=== PATIENT | female | born 1940 | race Caucasian/White ===

== ENCOUNTER 2019-07-14 09:19 | Outpatient (CLI) | payer MEDICARE, BC, SELFPAY ==
--- NOTE | ~2019-07-14 | US_ITS ---
EXAMINATION: US abdomen limited DATE: 07/14/2019 09:53 INDICATION: Abnormal liver function tests. TECHNIQUE: Multiple grayscale and Doppler ultrasound images of the abdomen were obtained. COMPARISON: CT abdomen and pelvis 11/28/2015 FINDINGS: The visualized portions of the head and body of the pancreas are normal. The liver is lakeisha l without focal lesion. No liver surface nodularity. There is normal flow in main portal vein. The ga llbladder is normal in size. No gallstones or gallbladder wall thickening. There was no sonographic M urphy sign. The common duct is normal and measures 6 mm. IMPRESSION: 1. Normal right upper quadrant ultrasound. Reviewed, dictated and finalized at location A.
== END 2019-07-14 09:20 | disposition home or self-care (01) ==
LOC: ANHIMG 09:22
PROVIDERS: PCP Family Medicine; Visit Provider Internal Medicine Cardiovascular Disease
DX: R79.89 Other specified abnormal findings of blood chemistry (principal)
CPT/HCPCS: 76705

== ENCOUNTER 2019-10-17 15:50 | Outpatient (CLI) | payer MEDICARE, BC, SELFPAY ==
--- NOTE | ~2019-10-17 | XR_ITS ---
EXAMINATION: XR tibia fibula RT 2V DATE: 10/17/2019 16:21 INDICATION: Right lower leg pain TECHNIQUE: 1. Anteroposterior and lateral views of the right tibia and fibula were obtained. COMPARISON: None. FINDINGS: Alignment is normal. No fracture. No periosteal reaction or suspicious lytic or blastic bone lesions. Osteoarthritis at the right knee with mild to moderate nonuniform joint space narrowing on nonweight bearing imaging and marginal ossified swelling the medial tibial plateau. Joint space at the right an kle and visualized portions of the mid and hindfoot appear relatively preserved. Soft tissues are unr emarkable. No right ankle joint effusion. IMPRESSION: 1. Mild to moderate osteoarthritis at the right knee which could be underestimated on nonweightbearin g imaging. Reviewed, dictated and finalized at location A. IMPRESSION: 1. Mild to moderate osteoarthritis at the right knee which could be underestima deo on nonweightbearing imaging.
== END 2019-10-17 15:51 | disposition home or self-care (01) ==
PROVIDERS: PCP Family Medicine; Visit Provider Family Medicine
DX: M17.11 Unilateral primary osteoarthritis, right knee (principal)
CPT/HCPCS: 73590

== ENCOUNTER 2019-11-01 01:10 | Outpatient (CLI) | payer MEDICARE, BC, SELFPAY ==
[2019-11-01 20:48] LABS: SARS-CoV-2 RNA PCR Negative
== END 2019-11-01 01:11 | disposition home or self-care (01) ==
LOC: ANHCOVIDDT 01:11
PROVIDERS: PCP Family Medicine; Visit Provider Internal Medicine Gastroenterology
DX: Z01.812 Encounter for preprocedural laboratory examination (principal); Z11.59 Encounter for screening for other viral diseases
CPT/HCPCS: 87635; C9803; U0003

== ENCOUNTER 2019-11-03 01:40 | Day surgery (SDC) | payer MEDICARE, BC, SELFPAY ==
[2019-10-30 12:46] VITALS: BMI 25.0
--- NOTE | ~2019-11-03 | XR_ITS ---
EXAMINATION: XR_ENEMABAC_CR DATE: 11/03/2019 14:51 INDICATION: Incomplete colonoscopy TECHNIQUE: A jewelry manager radiograph was obtained. A catheter was inserted into the patient's rectum. Contra st was infused by gravity. Gas was infused by hand pump. Fluoroscopic spot images and conventional ra diographs were obtained. Fluoroscopy exposure time was 4.0 minutes. The DAP for this procedure was 47 .78 Gycm2. 27 total images were obtained. COMPARISON: None. FINDINGS: A moderate amount of colonic gas is seen on the jewelry manager image. No dilated loops of bowel are evident. Early fluoroscopic images demonstrate a questionable stricture of the descending colon howev er, this does not persist on subsequent images. There is extensive sigmoid diverticulosis. A divertic ulum is also noted at the splenic flexure of the colon. The colon is normal in caliber. IMPRESSION: 1. Extensive diverticulosis of the sigmoid colon. No colonic mass or stricture identified. Reviewed, dictated and finalized at location A.
[2019-11-03 07:50] VITALS: BP 163/64; PULSE 54; RESP 18; TEMP 36.3; O2SAT 100; BMI 24.8
[2019-11-03] MEDS: LACTATED RINGERS 1,000 ML 150 ML IV CONT (08:20)
--- NOTE | 2019-11-03 08:29 | PM.HPGS ---
History of Present Illness History of Present Illness Consent: Risks, benefits, and alternatives have been discussed and questions answered. Patient agrees to proceed with procedure. Chief complaint: Iron Deficient Anemia Narrative: Kate Velasco is a 79 year old W female referred for gastroscopy and colonoscopy for evaluation of iron deficiency anemia. Patient's only symptoms include tiredness and fatigue. Routine blood work she was noted to have a hemoglobin 9.5 hematocrit 31 a decreased iron studies patient has no overt evidence of GI blood loss. She thinks in the spring she had some darker stools than usual. She denies any nonsteroidal inflammatory drugs except for ibuprofen a couple times a week. No upper GI tract symptoms. Patient has lost 17 lb but states she has been on weight watchers the past year. Patient had a colonoscopy performed by myself 5 years ago secondary to family history of colon cancer in her father I could not reach the cecum secondary redundant hepatic flexure. She did have a barium enema which revealed extensive diverticular disease and a redundant transverse colon hepatic flexure. I did explain to her I may not be able to reach the cecum again. If so repeat an x-ray. [facility] Past Medical History Medical History Anemia Gastritis GERD (gastroesophageal reflux disease) Iron deficiency anemia, unspecified Pain in right lower leg Family History Family History Father Patient's father is , Onset Age: 81 Family history of cardiovascular disease Mother Family history of cardiovascular disease, Onset Age: 73 Sibling Family history of cardiovascular disease Grandparent Family history of cardiovascular disease, Onset Age: 70 Family history of malignant neoplasm, Onset Age: 63 Other Diabetes mellitus Family history of arthritis Family history of gout Hypertension Social History Social History Smoking status: Never smoker Second hand tobacco smoke exposure: Yes (spouse) Alcohol intake: current Drinks per week: 7 Alcohol use details: glass of wine in the evening Substance use type: does not use Living arrangements: alone Gender identity (if verbalized by the patient): Female Spiritual care concerns: No Meds Home Medications and Allergies Home Medications Medication Instructions Recorded Confirmed Type amlodipine 2.5 mg tablet 2.5 mg PO DAILY 05/22/19 10/30/19 History aspirin 81 mg tablet,delayed 81 mg PO DAILY 05/22/19 10/30/19 History release azelastine 137 mcg (0.1 %) nasal 137 mcg NASAL Q12H PRN 05/22/19 10/30/19 History spray aerosol donepezil 5 mg tablet 5 mg PO . q.h.s. tablet 05/22/19 10/30/19 History fluticasone propionate 50 1 spray NASAL BID PRN 05/22/19 10/30/19 History mcg/actuation nasal spray,suspension furosemide 20 mg tablet 20 mg PO QAM 05/22/19 10/30/19 History lisinopril 20 mg tablet 20 mg PO DAILY 05/22/19 10/30/19 History rosuvastatin 10 mg tablet 10 mg PO DAILY 05/22/19 10/30/19 History ferrous sulfate 325 mg (65 mg 325 mg PO DAILY 10/17/19 10/30/19 History iron) tablet omeprazole 40 mg capsule,delayed 40 mg PO DAILY #30 cap 10/17/19 10/30/19 Rx release nebivolol 5 mg tablet 5 mg PO DAILY 10/25/19 10/30/19 History biotin 1,000 mcg PO DAILY 10/30/19 10/30/19 History glucos sul 1GQr-bia-isczq-C-Mn cap PO 10/30/19 History [Glucosamine Chondroitin] Allergies Allergy/AdvReac Type Severity Reaction Status Date / Time albuterol AdvReac Unknown Nervousness Verified 11/03/19 07:49 codeine AdvReac Unknown NAUSEA/VOMI Verified 11/03/19 07:49 TING epinephrine AdvReac Unknown Nervousness Verified 11/03/19 07:49 hydrocodone AdvReac Unknown GI UPSET Verified 11/03/19 07:49 Vital Signs Vital Signs - 24 hr
--- NOTE | 2019-11-03 08:54 | WPDANESEPPF ---
Anes - Initial Pre Proc Eval Procedure: Operation Date: 11/03/19 09:00 Proposed Procedures p Esophagogastroduodenoscopy&Screen Colon - Surya Middleton MD Date/Time: 11/03/19 08:54 Surgeon: Surya Middleton MD Pre Op Diagnosis: Iron Deficient Anemia Patient Data Age: 79 Gender: F Height: 5 ft 3 in Weight: 63.7 kg Last Vital Signs Temp 97.4 F L 11/03/19 07:50 Pulse 54 L 11/03/19 07:50 Resp 18 11/03/19 07:50 BP 163/64 H 11/03/19 07:50 Pulse Ox 100 11/03/19 07:50 Allergies Allergy/AdvReac Type Severity Reaction Status Date / Time albuterol AdvReac Unknown Nervousness Verified 11/03/19 07:49 codeine AdvReac Unknown NAUSEA/VOMI Verified 11/03/19 07:49 TING epinephrine AdvReac Unknown Nervousness Verified 11/03/19 07:49 hydrocodone AdvReac Unknown GI UPSET Verified 11/03/19 07:49 Home Medications Medication Instructions Recorded Confirmed Type amlodipine 2.5 mg tablet 2.5 mg PO DAILY 05/22/19 10/30/19 History aspirin 81 mg tablet,delayed 81 mg PO DAILY 05/22/19 10/30/19 History release azelastine 137 mcg (0.1 %) nasal 137 mcg NASAL Q12H PRN 05/22/19 10/30/19 History spray aerosol donepezil 5 mg tablet 5 mg PO . q.h.s. tablet 05/22/19 10/30/19 History fluticasone propionate 50 1 spray NASAL BID PRN 05/22/19 10/30/19 History mcg/actuation nasal spray,suspension furosemide 20 mg tablet 20 mg PO QAM 05/22/19 10/30/19 History lisinopril 20 mg tablet 20 mg PO DAILY 05/22/19 10/30/19 History rosuvastatin 10 mg tablet 10 mg PO DAILY 05/22/19 10/30/19 History ferrous sulfate 325 mg (65 mg 325 mg PO DAILY 10/17/19 10/30/19 History iron) tablet omeprazole 40 mg capsule,delayed 40 mg PO DAILY #30 cap 10/17/19 10/30/19 Rx release nebivolol 5 mg tablet 5 mg PO DAILY 10/25/19 10/30/19 History biotin 1,000 mcg PO DAILY 10/30/19 10/30/19 History glucos sul 3RSp-hwo-dbyvy-C-Mn cap PO 10/30/19 History [Glucosamine Chondroitin] Patient hx anesthesia problems: none Family hx anesthesia problems: none PMFSH Past Medical History Medical History Anemia Gastritis GERD (gastroesophageal reflux disease) Iron deficiency anemia, unspecified Pain in right lower leg Family History Family History Father Patient's father is , Onset Age: 81 Family history of cardiovascular disease Mother Family history of cardiovascular disease, Onset Age: 73 Sibling Family history of cardiovascular disease Grandparent Family history of cardiovascular disease, Onset Age: 70 Family history of malignant neoplasm, Onset Age: 63 Other Diabetes mellitus Family history of arthritis Family history of gout Hypertension Social History Social History Smoking status: Never smoker Second hand tobacco smoke exposure: Yes (spouse) Alcohol intake: current Drinks per week: 7 Alcohol use details: glass of wine in the evening Substance use type: does not use Living arrangements: alone Gender identity (if verbalized by the patient): Female Spiritual care concerns: No Anes - Eval Final PreProcedure Day of Procedure 11/03/19 08:54 Patient weight: normal Heart: regular rate and rhythm Lungs: clear to auscultation Airway: Mallampati scale class II Neurological: alert and oriented Last oral intake: >/= 8 hours ASA classification: II Emergent: no Anesthetic plan: proceed Anesthesia type and monitoring: general GIVS and standard monitoring Informed Consent: The patient's anesthetic plan and its attendant risks and benefits were discussed with the patient/family/POA. Questions were solicited and answers provided to the satisfaction of the patient/family/POA.
[2019-11-03 09:46] VITALS: BP 182/72; PULSE 54; RESP 18; O2SAT 100
[2019-11-03 09:56] VITALS: BP 185/75; PULSE 52; RESP 19; O2SAT 100
[2019-11-03 10:06] VITALS: BP 191/81; PULSE 55; RESP 16; O2SAT 100
== END 2019-11-03 10:33 | disposition home or self-care (01) ==
PROVIDERS: PCP Family Medicine; Visit Provider Internal Medicine Gastroenterology
PROC: 0DJ08ZZ Inspection of Upper Intestinal Tract, Via Natural or Artificial Opening Endoscopic (ICD-10-PCS; CPT 43235; principal; 2019-11-03 09:00)
DX: D50.9 Iron deficiency anemia, unspecified (principal); K25.9 Gastric ulcer, unspecified as acute or chronic, without hemorrhage or perforation; K29.50 Unspecified chronic gastritis without bleeding; K21.9 Gastro-esophageal reflux disease without esophagitis; I10 Essential (primary) hypertension; E78.5 Hyperlipidemia, unspecified; Z87.11 Personal history of peptic ulcer disease; Z80.0 Family history of malignant neoplasm of digestive organs; Z79.82 Long term (current) use of aspirin; Z79.899 Other long term (current) drug therapy; Z79.51 Long term (current) use of inhaled steroids
CPT/HCPCS: 43239; 74280; 87081; 88305; J2001; J2704; J7120

== ENCOUNTER 2020-07-17 12:12 | Outpatient (CLI) | payer MEDICARE, BC, SELFPAY ==
[2020-07-17 13:20] LABS: Anion Gap 6 mmol/L (8-16); Blood Urea Nitrogen 19 mg/dL (7-17); Calcium 9.5 mg/dL (8.4-10.2); Carbon Dioxide 30 mmol/L (22-30); Chloride 99 mmol/L (98-107); Estimated Glomerular Filt Rate 60; Glucose 92 mg/dL (65-105); Potassium 4.6 mmol/L (3.4-5.0); Sodium 135 mmol/L (137-145)
== END 2020-07-17 12:13 | disposition home or self-care (01) ==
PROVIDERS: PCP Family Medicine; Visit Provider Internal Medicine Cardiovascular Disease
DX: I10 Essential (primary) hypertension (principal)
CPT/HCPCS: 36415; 80048

== ENCOUNTER 2020-07-26 08:55 | Outpatient (CLI) | payer MEDICARE, BC, SELFPAY ==
[2020-07-26 09:40] LABS: Anion Gap 7 mmol/L (8-16); Blood Urea Nitrogen 26 mg/dL (7-17); Calcium 9.5 mg/dL (8.4-10.2); Carbon Dioxide 30 mmol/L (22-30); Chloride 101 mmol/L (98-107); Estimated Glomerular Filt Rate 60; Glucose 93 mg/dL (65-105); Potassium 4.8 mmol/L (3.4-5.0); Sodium 138 mmol/L (137-145)
== END 2020-07-26 08:56 | disposition home or self-care (01) ==
PROVIDERS: PCP Family Medicine; Visit Provider Internal Medicine Cardiovascular Disease
DX: I10 Essential (primary) hypertension (principal)
CPT/HCPCS: 36415; 80048

== ENCOUNTER 2020-08-13 15:43 | Outpatient (CLI) | payer MEDICARE, BC, SELFPAY ==
--- NOTE | ~2020-08-13 | XR_ITS ---
XR chest 2V DATE: 08/13/2020 16:15 INDICATION: Left-sided chest pain, mid rib or breast area following a fall 5 days ago TECHNIQUE: PA and lateral views COMPARISON: 06/30/2013 2 view chest FINDINGS: Normal heart size. No hilar or mediastinal enlargement. Thoracic aortic calcification. Mild bilateral apical capping. Bilateral hyperinflation suggesting COPD. No pulmonary infiltrate or consolidation, pleural effusion or pulmonary vascular congestion or pneumothorax. Diffuse osteopenia. Mild thoracic dextroscoliosis. IMPRESSION: Bilateral hyperinflation consistent with COPD No active cardiopulmonary disease Thoracic aortic calcification Reviewed, dictated and finalized at location A.
== END 2020-08-13 15:44 | disposition home or self-care (01) ==
PROVIDERS: PCP Family Medicine; Visit Provider Family Medicine
DX: R07.89 Other chest pain (principal); I70.0 Atherosclerosis of aorta
CPT/HCPCS: 71046

== ENCOUNTER 2021-06-24 15:41 | Emergency (ER) | payer MEDICARE, BC, SELFPAY ==
[2021-06-24 16:03] VITALS: BP 155/60; PULSE 56; RESP 18; TEMP 36.4; O2SAT 100
--- NOTE | 2021-06-24 16:29 | ED.SKABFB ---
HPI - Skin/Abscess/Foreign Bdy General Chief complaint: Skin/Abscess/Foreign Body Stated complaint: rash on rt side Time Seen by Provider: 06/24/21 16:29 Source: patient, RN notes reviewed and old records reviewed Mode of arrival: ambulatory Limitations: no limitations History of Present Illness HPI narrative: 80-year-old female who presents to [facility] with complaints of macular rash along right side of abdomen noted today which is itchy and states she has noted some burning sensation. Patient relays history of chicken pox and past shingles rash. Rash noted to be raised and red with no pustular formation but is grouped in linear fashion. Patient denies any known exposure to poisonous plant or any new skin products, laundry detergents, new mediations or food. MD complaint: rash Related Data Home Medications Medication Instructions Recorded Confirmed amlodipine [Norvasc] 5 mg PO DAILY 06/24/21 06/24/21 azilsartan medoxomil [Edarbi] 40 mg PO DAILY 06/24/21 06/24/21 donepezil 10 mg PO DAILY 06/24/21 06/24/21 furosemide 20 mg PO DAILY 06/24/21 06/24/21 hydrochlorothiazide 25 mg PO DAILY 06/24/21 06/24/21 nebivolol 5 mg PO DAILY 06/24/21 06/24/21 omeprazole 40 mg PO DAILY 06/24/21 06/24/21 tobramycin 1 drp DIRECTED 06/24/21 06/24/21 vitamins A,C,Y-aehs-gdmktx 1 cap PO DAILY 06/24/21 06/24/21 [PreserVision AREDS] Allergies Allergy/AdvReac Type Severity Reaction Status Date / Time albuterol AdvReac Unknown Nervousness Verified 06/24/21 16:31 codeine AdvReac Unknown NAUSEA/VOMI Verified 06/24/21 16:30 TING epinephrine AdvReac Unknown Nervousness Verified 06/24/21 16:30 hydrocodone AdvReac Unknown GI UPSET Verified 06/24/21 16:31 Review of Systems Review of Systems: CONSTITUTIONAL: Denies fever, chills, or sweats. EYES: Denies visual changes, redness, or discharge. ENT: Denies rhinorrhea, congestion, sore throat, or otalgia. CARDIOVASCULAR: Denies chest pain, palpitations, or edema. RESPIRATORY: Denies cough or dyspnea. GASTROINTESTINAL: Denies abdominal pain, nausea, vomiting, or diarrhea. GENITOURINARY: Denies dysuria or hematuria. SKIN:Positive for raised rash with itching and some burning along upper lateral right abdomen MUSCULOSKELETAL: Denies back pain, joint pain, or myalgia. NEUROLOGIC: Denies headache, numbness, or weakness. PSYCHIATRIC: Denies anxiety or depression. 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 EGD 06/19/2020 BMI 25.0-25.9,adult Contusion of left chest wall Gastritis GERD (gastroesophageal reflux disease) High cholesterol Hypertension Iron deficiency anemia, unspecified Left knee DJD Left shoulder pain Pain in right lower leg Peptic ulcer disease Right knee DJD Stomach ulcer Stye Surgical History Surgical History (Updated 06/24/21 @ 23:57 by Lady Hugo NP) S/P right knee arthroscopy Family History Family History Father Patient's father is , Onset Age: 81 Family history of cardiovascular disease Mother Family history of cardiovascular disease, Onset Age: 73 Sibling Family history of cardiovascular disease Grandparent Family history of cardiovascular disease, Onset Age: 70 Family history of malignant neoplasm, Onset Age: 63 Other Diabetes mellitus Family history of arthritis Family history of gout Hypertension Social History Social History Second hand tobacco smoke exposure: Yes (spouse) Alcohol intake: current Drinks per week: 7 Alcohol use details: glass of wine in the evening Substance use type: does not use Gender identity (if verbalized by the pa
== END 2021-06-24 16:47 | disposition home or self-care (01) ==
PROVIDERS: Emergency Provider Registered Nurse; PCP Family Medicine
DX: B02.9 Zoster without complications (principal); M19.90 Unspecified osteoarthritis, unspecified site; K21.9 Gastro-esophageal reflux disease without esophagitis; M17.0 Bilateral primary osteoarthritis of knee; D50.9 Iron deficiency anemia, unspecified
CPT/HCPCS: 99213; G0463

== ENCOUNTER → 2022-10-01 09:45 | Outpatient (CLI) | payer MEDICARE, BC, SELFPAY ==
--- NOTE | ~2022-10-01 | XR_ITS ---
Right Shoulder Technique: AP and axillary views were obtained. Clinical History: Pain Findings: No fracture or dislocation is seen. Osseous alignment is anatomic. The glenohumeral and acr omioclavicular joint spaces are preserved. Soft tissues are unremarkable. Impression: Unremarkable right shoulder radiographs. Reviewed, dictated and finalized at [facility]. Impression: Unremarkable right shoulder radiographs.
== END ==
PROVIDERS: PCP Family Medicine; Visit Provider Family Medicine
DX: M25.511 Pain in right shoulder (principal)
CPT/HCPCS: 73030

== ENCOUNTER 2022-12-13 10:27 | Inpatient (IN) | payer MEDICARE, BC, SELFPAY ==
[2022-12-13] VITALS (17 sets, daily range): BP systolic 142–164; BP diastolic 63–74; PULSE 59–84; RESP 12–20; TEMP 36.1–37.2; O2SAT 98–100; BMI 25.2
--- NOTE | ~2022-12-13 | XR_ITS ---
EXAMINATION: XR chest 2V DATE: 12/13/2022 11:44 INDICATION: Fever. TECHNIQUE: Frontal and lateral views of the chest were obtained on 3 radiographs. COMPARISON: Chest 2 views 08/13/2020 FINDINGS: There are airspace opacities in left upper lobe, consistent with pneumonia. No pleural effu carol or pneumothorax. The heart size is normal. IMPRESSION: 1. Left upper lobe pneumonia. Reviewed, dictated and finalized at location A.
--- NOTE | 2022-12-13 10:42 | ECG_ITS ---
Measurements Intervals [place] Rate: 59 P: 30 PA: 159 QRS: -11 QRSD: 81 T: 22 QT: 429 QTc: 427 Interpretive Statements SINUS BRADYCARDIA NO PREVIOUS ECG AVAILABLE FOR COMPARISON Electronically Signed On 12-13-2022 13:03:10 CDT by Marbin Quinonez M.D.
--- NOTE | 2022-12-13 10:51 | ED.FEVER ---
HPI - Fever General Chief Complaint: Fever Stated Complaint: fever/aches Time Seen by Provider: 12/13/22 10:42 Source: patient Mode of arrival: ambulatory Limitations: no limitations History of Present Illness HPI Narrative: This is a 82 year old female that presents to the ER for fevers. Ongoing the last week. Associated with myalgias and chills. She was seen at Urgent Care and started on Amoxicillin for possible sinusitis. Reports she has been taking this for 3 days. Also added on Doxycycline last night. She continues to feel fatigued. Denies cough, congestion, sore throat, otalgia, rashes, abdominal pain, vomiting, diarrhea, or dysuria. Related Data Home Medications Medication Instructions Recorded Confirmed azilsartan medoxomil 40 mg tablet 40 mg PO DAILY 06/24/21 12/13/22 (Edarbi) inclisiran 284 mg/1.5 mL 284 mg subcut [id number] 07/14/22 12/13/22 subcutaneous syringe (Leqvio) magnesium oxide 250 mg PO DAILY PRN Leg cramps 07/14/22 12/13/22 nebivolol 5 mg tablet 2.5 mg PO DAILY 07/14/22 12/13/22 amlodipine 5 mg tablet (Norvasc) 5 mg PO BID 10/01/22 12/13/22 fluticasone propionate 50 1 spray intranasal BID PRN Allergy 12/13/22 12/13/22 mcg/actuation nasal Symptoms spray,suspension (Flonase Allergy Relief) omeprazole 20 mg capsule,delayed 20 mg PO DAILY 12/13/22 12/13/22 release Allergies Allergy/AdvReac Type Severity Reaction Status Date / Time albuterol AdvReac Unknown Nervousness Verified 11/19/22 14:10 codeine AdvReac Unknown NAUSEA/VOMI Verified 11/19/22 14:10 TING epinephrine AdvReac Unknown Nervousness Verified 11/19/22 14:10 hydrocodone AdvReac Unknown GI UPSET Verified 11/19/22 14:10 Review of Systems Review of Systems: CONSTITUTIONAL: Reports fever, chills ENT: Denies rhinorrhea, congestion, sore throat, or otalgia. CARDIOVASCULAR: Denies chest pain RESPIRATORY: Denies cough or dyspnea. GASTROINTESTINAL: Denies abdominal pain, nausea, vomiting, or diarrhea. GENITOURINARY: Denies dysuria or hematuria. SKIN: Denies rash All systems reviewed & are unremarkable except as noted in HPI and below PMFSH Past Medical History Medical History (Updated 12/13/22 @ 15:14 by Janice James PA-C) Abnormal fasting glucose Glucose 95 with hemoglobin A1c 5.5 on 12/05/2021. Fasting glucose 101 on 05/05/2022. Fasting glucose 97 on 08/24/2022. Fasting glucose 92 on 09/03/2022. Anemia Hemoglobin 11.4 on 08/24/2022. 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 X-ray of the right shoulder on 10/01/2022 was unremarkable. Chronic reflux esophagitis Capsule endoscopy 05/21/2020 Dementia, unspecified, without behavioral disturbance Gastritis Gastroesophageal reflux disease High cholesterol Hypertension Iron deficiency anemia, unspecified Hemoglobin 11.0, iron 106 with 31% saturation and ferritin 78 on 12/05/2021. Iron 90, 27.7% saturation, ferritin 124, hemoglobin 11.2 on 05/05/2022. Iron 104 with 31% saturation and ferritin 104 with hemoglobin 11.4 on 08/24/2022. Left knee DJD Low serum sodium Sodium 127 with chloride 91 on 08/24/2022. sodium 133 with potassium 4.6 on 09/03/2022. Peptic ulcer disease Poor memory Right knee DJD Serum potassium elevated Potassium slightly elevated at 5.4 on 08/24/2022. Repeated at 09/03/2022 with level normal at 4.6. Stomach ulcer Surgical History Surgical History (Updated 12/13/22 @ 14:57 by Corina Dejesus PA-C) History of arthroscopy of right knee S/P right knee arthroscopy Family History Family History Father Patient's father is , Onset Age: 81 Family history of cardiovascular disease Mother Family history of cardiovascular disease, Onset Age: 73 Sibling Family history of cardiovascular disease Grandparent
[2022-12-13 11:12] LABS: Basophils Percent Auto 0.5 % (0.2-1.2); Eosinophils Absolute Auto 0.1 K/mm3 (0-0.3); Eosinophils Percent Auto 1.3 % (0-4.4); Hematocrit 31.4 % (37.0-47.0); Hemoglobin 10.8 g/dL (12.0-15.0); Immature Granulocyte Absolute 0.03 K/mm3 (0.00-0.031); Immature Granulocyte Percent A 0.4 % (0-0.5); Lymphocytes Absolute Auto 0.55 K/mm3 (0.9-3.2); Lymphocytes Percent Auto 6.5 % (18.3-44.2); Mean Corpuscular HGB Conc 34.4 g/dl (32-36); Mean Corpuscular Hemoglobin 31.8 pg (26-34); Mean Corpuscular Volume 92.4 fl (80-100); Mean Platelet Volume 9.5 fl (7.4-10.4); Monocytes Absolute Auto 1.5 K/mm3 (0.1-0.6); Monocytes Percent Auto 18.3 % (2.6-8.5); Neutrophils Absolute Auto 6.1 K/mm3 (1.3-6.7); Platelet Count Result 360 k/mm3 (150-375); Red Cell Distribution Width 11.9 % (11.5-14.5); White Blood Count 8.4 K/mm3 (4.5-10.0)
[2022-12-13 11:22] LABS: Lactic Acid Reflex 1.9 mmol/L (0.7-2.0)
[2022-12-13 11:26] LABS: Prothrombin Time 13.9 Seconds (11.1-14.7)
[2022-12-13 11:27] LABS: Partial Thromboplastin Time 35.9 SECONDS (22.3-36.8)
[2022-12-13 11:39] LABS: Alanine Aminotransferase 25 U/L (6-35); Albumin Level 3.8 g/dL (3.5-5.1); Alkaline Phosphatase 241 U/L (38-126); Anion Gap 9 mmol/L (8-16); Aspartate Amino Transferase 30 U/L (14-36); Bilirubin,Total 0.5 mg/dL (0.2-1.3); Blood Urea Nitrogen 12 mg/dL (7-17); CRP 20.7 mg/dL (<1.0); Calcium 8.6 mg/dL (8.4-10.2); Carbon Dioxide 26 mmol/L (22-30); Chloride 86 mmol/L (98-107); Estimated CRCL calculation 31 ml/min; Estimated Glomerular Filt Rate 53; Glucose 121 mg/dL (65-110); Lipase 54 U/L (23-300); Potassium 3.7 mmol/L (3.4-5.0); Sodium 121 mmol/L (137-145)
[2022-12-13 11:48] LABS: Monoscreen Negative (Negative); Negative Monotest Control Negative (Negative); Positive Monotest Control Positive (Positive)
[2022-12-13] MEDS: SODIUM CHLORIDE 0.9% IV 1,000 ML 999 ML IV CONT (11:49)
[2022-12-13 12:11] LABS: Influenza A QL RT-PCR Negative (Negative); Influenza B QL RT-PCR Negative (Negative); RSV RNA, RT-PCR Negative (Negative); SARS-CoV-2 RNA PCR Negative (Negative)
[2022-12-13] MEDS: AZITHROMYCIN 500 MG/NS 250 ML 500 MG/250 ML BAG 250 MG IVPB (12:57)
[2022-12-13 13:22] LABS: Appearance Urine Cloudy (Clear); Bacteria Urine None Seen /hpf; Bilirubin Urine Negative (Negative); Blood Urine Negative (Negative); Color Urine Yellow (Yellow); Glucose Urine UA Negative (Negative); Ketones Urine Negative (Negative); Leukocyte Esterase Ur Negative LEU/UL (Negative); Nitrate Urine Negative (Negative); Protein Urine Trace mg/dL (Negative); RBC Urine 0-2 /hpf (0-2); Specific Grav Ur 1.008 (1.001-1.035); Squamous Epithelial Cell Urine None seen /hpf (Few); Urobilinogen Urine 0.2 mg/dL (<2.0); WBC Urine 0-5 /hpf
[2022-12-13 13:23] LABS: Add Urine Microscopic? YES
[2022-12-13] MEDS: ACETAMINOPHEN 500 MG TABLET 1000 MG PO (14:51)
--- NOTE | 2022-12-13 14:51 | PM.IMHP ---
H&P: HPI History of Present Illness Date/Time: 12/13/22 14:50 Chief Complaint: Fatigue and fever. Narrative: This is a very pleasant n 82-year-old female with hypertension, dyslipidemia, chronic hyponatremia, and anemia who presented to the emergency department via private vehicle from home with complaints of fatigue and fever. The patient provides the following history. She has not been feeling well for about 1 week with symptoms to include myalgias, chills, fatigue, and fever. Her appetite has not been great and she endorses decrease in oral intake for most of the week. She was seen at a local urgent care and was prescribed amoxicillin for possible sinusitis (she has frequent allergy symptoms and sinus issues) after testing negative for influenza and COVID. Her symptoms did not improve after 3 days on the antibiotic and she spoke with the nurse practitioner whom she had seen at urgent care earlier in the week. She was called and doxycycline yesterday but unfortunately she continues to feel unwell and had a temperature up to 103? F last evening and she decided to come in today for evaluation. She denies chest pain, sore throat, cough, vomiting, and diarrhea. She was afebrile on arrival with stable vital signs. Preliminary workup in the ED was significant for a WBC count of 8.4, hemoglobin 10.8, sodium 121, chloride 86, CRP 20.7, and a chest x-ray showing a left upper lobe pneumonia. She was given 1 L normal saline in addition to 500 mg azithromycin and 1 gram ceftriaxone and she is being admitted in this setting for further care. Review of Systems Review of Systems: Twelve systems were reviewed. She has chronic arthritic pain in her right shoulder and knees and is scheduled to have injections on Wednesday with Dr. Chappell however it is my understanding that the gel injections did not come in. She is doing okay with regards to her knees however her shoulders giving her quite a bit of grief. Except as documented, all other systems were reviewed and are negative. [facility] Past Medical History Medical History Abnormal fasting glucose Glucose 95 with hemoglobin A1c 5.5 on 12/05/2021. Fasting glucose 101 on 05/05/2022. Fasting glucose 97 on 08/24/2022. Fasting glucose 92 on 09/03/2022. Anemia Hemoglobin 11.4 on 08/24/2022. 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 X-ray of the right shoulder on 10/01/2022 was unremarkable. Chronic reflux esophagitis Capsule endoscopy 05/21/2020 Dementia, unspecified, without behavioral disturbance Gastritis Gastroesophageal reflux disease High cholesterol Hypertension Iron deficiency anemia, unspecified Hemoglobin 11.0, iron 106 with 31% saturation and ferritin 78 on 12/05/2021. Iron 90, 27.7% saturation, ferritin 124, hemoglobin 11.2 on 05/05/2022. Iron 104 with 31% saturation and ferritin 104 with hemoglobin 11.4 on 08/24/2022. Left knee DJD Low serum sodium Sodium 127 with chloride 91 on 08/24/2022. sodium 133 with potassium 4.6 on 09/03/2022. Peptic ulcer disease Poor memory Right knee DJD Serum potassium elevated Potassium slightly elevated at 5.4 on 08/24/2022. Repeated at 09/03/2022 with level normal at 4.6. Stomach ulcer Surgical History Surgical History History of arthroscopy of right knee Family History Family History Father Patient's father is , Onset Age: 81 Family history of cardiovascular disease Mother Family history of cardiovascular disease, Onset Age: 73 Sibling Family history of cardiovascular disease Grandparent Family history of cardiovascular disease, Onset Age: 70 Family history of malignant neoplasm, Onset Age: 6
--- NOTE | 2022-12-13 15:18 | PC.NURSE ---
This patient, Kate Velasco, was admitted to Medical Room 245-. Patient/family oriented to hospital policies and general routines including ID bracelet, bed and alarms, visiting hours, pain management, procedures, bathroom and other care routines, personal items, smoking policy, room service/diet, and visiting hours. Information on how to activate the Rapid Response Team has been discussed. Patient/Family are encouraged to report perceived risks to care and to ask questions if they do not understand what they are told or what they should do.
[2022-12-13 18:46] LABS: Anion Gap 13 mmol/L (8-16); Blood Urea Nitrogen 10 mg/dL (7-17); Calcium 8.3 mg/dL (8.4-10.2); Carbon Dioxide 18 mmol/L (22-30); Chloride 95 mmol/L (98-107); Estimated CRCL calculation 43 ml/min; Estimated Glomerular Filt Rate > 60; Glucose 91 mg/dL (65-110); Sodium 126 mmol/L (137-145)
[2022-12-13 19:13] LABS: Thyroid Stimulating Hormone Reflex 0.845 uIU/mL (0.465-4.68)
[2022-12-13] MEDS: ACETAMINOPHEN 325 MG TABLET 650 MG PO (21:11)
[2022-12-13 22:06] LABS: Creatinine Urine 40.8 mg/dL; Urea Random Urine 198 MG/DL
[2022-12-13 22:16] LABS: Sodium Urine Random 36 meq/L
[2022-12-13] MEDS: amLODIPine BESYLATE 5 MG TABLET PO (22:46)
[2022-12-14] VITALS (10 sets, daily range): BP systolic 113–121; BP diastolic 59–79; PULSE 59–88; RESP 14–18; TEMP 36.6–37.8; O2SAT 97–100
[2022-12-14] MEDS: ACETAMINOPHEN 325 MG TABLET 650 MG PO ×3 (04:03→20:34)
--- NOTE | 2022-12-14 04:42 | PC.NURSE ---
Pt was under the impression that the serial sodium lab draws were not continued. Pt was refusing lab draws until morning.
[2022-12-14 05:28] LABS: Hematocrit 28.7 % (37.0-47.0); Hemoglobin 9.9 g/dL (12.0-15.0); Mean Corpuscular HGB Conc 34.5 g/dl (32-36); Mean Corpuscular Hemoglobin 31.8 pg (26-34); Mean Corpuscular Volume 92.3 fl (80-100); Mean Platelet Volume 9.8 fl (7.4-10.4); Platelet Count Result 383 k/mm3 (150-375); Red Blood Count 3.11 M/mm3 (4.2-5.4); Red Cell Distribution Width 12.2 % (11.5-14.5); White Blood Count 6.6 K/mm3 (4.5-10.0)
[2022-12-14 05:41] LABS: Anion Gap 6 mmol/L (8-16); Blood Urea Nitrogen 8 mg/dL (7-17); Calcium 8.3 mg/dL (8.4-10.2); Carbon Dioxide 26 mmol/L (22-30); Chloride 93 mmol/L (98-107); Estimated CRCL calculation 43 ml/min; Estimated Glomerular Filt Rate > 60; Glucose 100 mg/dL (65-110); Magnesium 2.2 mg/dL (1.6-2.3); Potassium 3.6 mmol/L (3.4-5.0); Sodium 125 mmol/L (137-145)
[2022-12-14] MEDS: DONEPEZIL HCL 10 MG TABLET PO (08:23)
[2022-12-14] MEDS: NEBIVOLOL HCL 2.5 MG TABLET PO (08:23)
[2022-12-14] MEDS: amLODIPine BESYLATE 5 MG TABLET PO ×2 (08:23→20:34)
[2022-12-14] MEDS: PANTOPRAZOLE 40 MG TABLET PO (08:23)
[2022-12-14 09:43] LABS: Sodium 127 mmol/L (137-145)
--- NOTE | 2022-12-14 12:11 | PM.IMPN ---
Progress Note: A&P Assessment and Plan (1) Left upper lobe pneumonia: Code(s): J18.9 - Pneumonia, unspecified organism Status: Acute Assessment and Plan: Chest x-ray revealing left upper lobe pneumonia. Patient started on Rocephin and ceftriaxone. Patient does not have a cough but sputum cultures were. Blood cultures pending. Legionella, pneumococcal antigens and mycoplasma IgM ordered. CRP 20.7 (2) Hyponatremia: Code(s): E87.1 - Hypo-osmolality and hyponatremia Status: Acute Assessment and Plan: She has chronic hyponatremia but typically runs in the low 130s. Sodium was 121 on arrival today and improved to 126 after a 1 L normal saline bolus. Suspect that she was a bit dehydrated due to poor oral intake recently and the hyponatremia is probably pre renal. FENA score 0.5 indicating prerenal cause of hyponatremia. Hold furosemide (3) Hypertension: Code(s): I10 - Essential (primary) hypertension Status: Acute Assessment and Plan: Hold furosemide. Continue Edarbi and amilodipine. (4) Chronic anemia: Code(s): D64.9 - Anemia, unspecified Status: Acute Assessment and Plan: Stable (5) Right shoulder pain: Code(s): M25.511 - Pain in right shoulder Status: Acute Assessment and Plan: She has chronic pain in her right shoulder and is supposed to have an injection done tomorrow or Wednesday per Dr. Chappell however she will likely not make that appointment. Dr. Chappell's office contacted and they will reschedule patient for later date. Subjective Date/time seen: 12/14/22 12:11 Interval history: Patient states that she is very fatigued although feeling a much better today compared to yesterday. Went over the risks increasing her sodium too fast and she voiced understanding of this. She denies a cough but states that she has been battling fever for the past couple days as well as extreme fatigue. Patient has been afebrile since arrival to the hospital. Discussed therapy with the patient she states that she does not believe she therapy at this time and does not want currently. Exam Narrative: GENERAL: Comfortable, no acute distress HENMT: moist mucous membranes EYES: EOM intact b/l NECK: no lymphadenopathy RESPIRATORY: clear to auscultation CARDIO: RRR GI: soft, nontender, bowel sounds present SKIN: no rashes EXTREMITIES: no edema, redness or tenderness Objective Data Vital Signs Vital Signs: Vital Signs - 24 hr 12/13/22 12:15 12/13/22 12:17 12/13/22 12:38 Temperature Pulse Rate 63 63 63 Respiratory Rate 16 14 14 Blood Pressure 164/67 H Pulse Oximetry 98 Oxygen Delivery 12/13/22 15:31 12/13/22 16:00 12/13/22 15:30 Temperature 97.0 F L Pulse Rate 77 68 Respiratory Rate 18 Blood Pressure 163/63 H Pulse Oximetry 99 Oxygen Delivery Room Air 12/13/22 20:00 12/13/22 21:45 12/14/22 00:00 Temperature 98.9 F Pulse Rate 67 67 67 Respiratory Rate 16 16 Blood Pressure 149/63 H Pulse Oximetry 99 99 Oxygen Delivery Room Air 12/14/22 04:00 12/14/22 04:10 12/14/22 08:23 Temperature 97.8 F Pulse Rate 88 72 81 Respiratory Rate 16 Blood Pressure 113/79 Pulse Oximetry 100 Oxygen Delivery 12/14/22 08:00 Temperature Pulse Rate 81 Respiratory Rate 16 Blood Pressure Pulse Oximetry 100 Oxygen Delivery Room Air Intake/Output Intake/Output: Intake & Output 12/11/22 12/12/22 12/13/22 12/14/22 23:59 23:59 23:59 23:59 Intake Total 1300 860 Balance 1300 860 Meds/Results Medications: Active Medications Generic Name Dose Route Start Last Admin Trade Name Freq PRN Reason Stop Dose Admin Acetaminophen 650 mg 12/13/22 15:10 12/14/22 08:31 Acetaminophen 325 Mg Tablet PO 650 mg Q6H PRN Administration Mild Pain (1-3) or Fever Amlodipine Besylate 5 mg 12/14/22 09:00 12/14/22 08:23 Amlodipi
[2022-12-14] MEDS: AZITHROMYCIN 500 MG/NS 250 ML 500 MG/250 ML BAG 250 MG IVPB (12:15)
[2022-12-14 13:32] LABS: Sodium 125 mmol/L (137-145)
[2022-12-14 18:45] LABS: Sodium 125 mmol/L (137-145)
[2022-12-15] VITALS (8 sets, daily range): BP systolic 123–148; BP diastolic 50–60; PULSE 56–74; RESP 12–16; TEMP 35.5–36.8; O2SAT 98–99
[2022-12-15 05:59] LABS: Basophils Absolute Auto 0.1 K/mm3 (0.0-0.1); Basophils Percent Auto 1.1 % (0.2-1.2); Eosinophils Absolute Auto 0.5 K/mm3 (0-0.3); Eosinophils Percent Auto 8.2 % (0-4.4); Hematocrit 30.9 % (37.0-47.0); Hemoglobin 9.6 g/dL (12.0-15.0); Immature Granulocyte Absolute 0.04 K/mm3 (0.00-0.031); Immature Granulocyte Percent A 0.6 % (0-0.5); Lymphocytes Absolute Auto 1.35 K/mm3 (0.9-3.2); Lymphocytes Percent Auto 20.8 % (18.3-44.2); Mean Corpuscular HGB Conc 31.1 g/dl (32-36); Mean Corpuscular Hemoglobin 31.8 pg (26-34); Mean Corpuscular Volume 102.3 fl (80-100); Mean Platelet Volume 9.2 fl (7.4-10.4); Monocytes Absolute Auto 1.4 K/mm3 (0.1-0.6); Monocytes Percent Auto 21.6 % (2.6-8.5); Neutrophils Absolute Auto 3.1 K/mm3 (1.3-6.7); Neutrophils Percent Auto 47.7 % (45.5-73.1); Platelet Count Result 415 k/mm3 (150-375); Red Blood Count 3.02 M/mm3 (4.2-5.4); Red Cell Distribution Width 12.5 % (11.5-14.5); White Blood Count 6.5 K/mm3 (4.5-10.0)
[2022-12-15 06:11] LABS: Alanine Aminotransferase 21 U/L (6-35); Albumin Level 3.4 g/dL (3.5-5.1); Alkaline Phosphatase 217 U/L (38-126); Anion Gap 7 mmol/L (8-16); Aspartate Amino Transferase 28 U/L (14-36); Bilirubin,Total 0.3 mg/dL (0.2-1.3); Blood Urea Nitrogen 12 mg/dL (7-17); Calcium 8.6 mg/dL (8.4-10.2); Carbon Dioxide 26 mmol/L (22-30); Chloride 98 mmol/L (98-107); Estimated CRCL calculation 49 ml/min; Estimated Glomerular Filt Rate > 60; Glucose 104 mg/dL (65-110); Potassium 3.9 mmol/L (3.4-5.0); Sodium 131 mmol/L (137-145)
[2022-12-15 06:20] LABS: CRP 17.2 mg/dL (<1.0)
[2022-12-15] MEDS: PANTOPRAZOLE 40 MG TABLET PO (08:22)
[2022-12-15] MEDS: NEBIVOLOL HCL 2.5 MG TABLET PO (08:23)
[2022-12-15] MEDS: DONEPEZIL HCL 10 MG TABLET PO (08:23)
[2022-12-15] MEDS: amLODIPine BESYLATE 5 MG TABLET PO (08:23)
[2022-12-15] MEDS: ACETAMINOPHEN 325 MG TABLET 650 MG PO (08:24)
[2022-12-15] MEDS: ENOXAPARIN 40 MG/0.4 ML SYRINGE SUB-Q (08:24)
[2022-12-15] MEDS: polyethylene glycoL 3350 17 GM POWD.PACK PO (09:29)
--- NOTE | 2022-12-15 10:30 | PM.DS ---
DS: Admitting Diagnosis Discharge Date 12/15/22 Admitting Diagnosis pneumonia DS: Discharge Diagnosis Discharge Diagnosis (1) Left upper lobe pneumonia: Code(s): J18.9 - Pneumonia, unspecified organism Status: Acute (2) Hyponatremia: Code(s): E87.1 - Hypo-osmolality and hyponatremia Status: Acute (3) Hypertension: Code(s): I10 - Essential (primary) hypertension Status: Acute (4) Chronic anemia: Code(s): D64.9 - Anemia, unspecified Status: Acute (5) Right shoulder pain: Code(s): M25.511 - Pain in right shoulder Status: Acute DS: Summary Hospital Course Hospital Course: This is an 82-year-old female past medical history of hypertension, dyslipidemia, chronic hyponatremia and anemia the presents to the ED on 12/13/2022 due to not feeling well for approximately 1 week with increased fatigue and fever. She also had decreased oral intake over that week as well. She was prescribed amoxicillin with local urgent care due to possible sinusitis. She is negative for influenza and COVID at that time. Her symptoms did not improve after 3 days of antibiotic therapy. Her temperature got as high as 103 and as when she decided to present to the ED. Chest x-ray showing left upper lobe pneumonia. Her white blood cell count was within normal range sodium was found to be 121 and CRP was elevated to 20.7. She was given IV fluids and started on Rocephin and azithromycin. Patient received 2 days of IV antibiotics and fluids and she felt incredibly better. Her sodium increased to 131. Patient was able to move about the room without any difficulty. She has yet did develop a cough or shortness of breath. Patient states she feels back to her baseline. Patient's physical exam revealed clear lungs. Blood culture negative for 48 hours. Plan to discharge patient on Augmentin and azithromycin. Her labs and vital signs are stable and she is medically cleared for discharge at this time. Time Spent with Patient Time attestation: Total time spent providing and/or coordinating discharge services: Exam Narrative: GENERAL: Comfortable, no acute distress HENMT: moist mucous membranes EYES: EOM intact b/l NECK: no lymphadenopathy RESPIRATORY: clear to auscultation CARDIO: RRR GI: soft, nontender, bowel sounds present SKIN: no rashes EXTREMITIES: no edema, redness or tenderness DS: Data Data Completed and Pending Labs on day of discharge: Labs from last 24 hours 12/15/22 12/14/22 12/14/22 05:41 18:16 13:09 WBC 6.5 RBC 3.02 L Hgb 9.6 L Hct 30.9 L MCV 102.3 H D MCH 31.8 MCHC 31.1 L RDW 12.5 Plt Count 415 H MPV 9.2 Immature Gran % (Auto) 0.6 H Neut % (Auto) 47.7 Lymph % (Auto) 20.8 [place] % (Auto) 21.6 H Eos % (Auto) 8.2 H Baso % (Auto) 1.1 Lymph # (Auto) 1.35 [place] # (Auto) 1.4 H Eos # (Auto) 0.5 H Baso # (Auto) 0.1 Abs Immat Gran (auto) 0.04 H Absolute Neuts (auto) 3.1 Absolute Nucleated RBC 0.0 Nucleated RBC % 0.0 Sodium 131 L 125 L 125 L Potassium 3.9 Chloride 98 Carbon Dioxide 26 Anion Gap 7 L BUN 12 Creatinine 0.60 L Estim Creat Clear Calc 49 Estimated GFR > 60 Glucose 104 Calcium 8.6 Total Bilirubin 0.3 AST 28 ALT 21 Alkaline Phosphatase 217 H C-Reactive Protein 17.2 H Total Protein 7.0 Albumin 3.4 L Preliminary micro results at discharge 12/13/22 11:29 Blood Culture - Preliminary Blood 12/13/22 11:29 Blood Culture - Preliminary Blood Discharge Plan Discharge Attending physician on discharge: Florentino Hogan Discharging Clinician: Sharron Gillette Patient Disposition: Home, Self-Care Activity: as tolerated Diet: regular Discharge Instructions: Discharge instructions: Medications: Augmentin twice daily for 5 more days. Azithromycin once daily for 3 more days. Eat well jovana
--- NOTE | 2022-12-15 11:39 | PC.NURSE ---
On 12/15/22, the student, [Krissy Booker], provided care and completed [facility] documentation on this patient. I have reviewed the student's documentation and agree with the findings.
[2022-12-15] MEDS: AZITHROMYCIN 500 MG/NS 250 ML 500 MG/250 ML BAG 250 MG IVPB (11:58)
[2022-12-15 18:28] LABS: Pneumococcal Antigen Urine Not Detected (Not Detected)
[2022-12-16 01:52] LABS: Legionella pneumophila Ag Ur Not Detected (Not Detected)
[2022-12-16 19:30] LABS: Mycoplasma IgM Antibody Titer 31 U/mL (<770)
[2022-12-16 21:08] LABS: Osmolality, Urine 193 mOsm/kg (50-1200)
--- NOTE | 2022-12-18 07:06 | PC.NURSE ---
Urine L pnuemophila and Ur pneumococcal antigen are both not detected. Mycoplasma pneumonia is WNL at 31. Sputum cx is negative.
--- NOTE | 2022-12-22 06:57 | PC.NURSE ---
Blood cx are negative.
== END 2022-12-15 15:15 | disposition home or self-care (01) | DRG 194 ==
LOC: ANHED 10:47 → ANH2MED 15:04
PROVIDERS: Physician Assistant; Admitting Provider Internal Medicine; Emergency Provider Physician Assistant; PCP Family Medicine; Visit Provider Internal Medicine Critical Care Medicine
DX: J18.9 Pneumonia, unspecified organism (principal); E87.1 Hypo-osmolality and hyponatremia; I10 Essential (primary) hypertension; M25.511 Pain in right shoulder; E78.5 Hyperlipidemia, unspecified; J32.9 Chronic sinusitis, unspecified; Z20.822 Contact with and (suspected) exposure to COVID-19; K21.9 Gastro-esophageal reflux disease without esophagitis; M19.90 Unspecified osteoarthritis, unspecified site; M17.11 Unilateral primary osteoarthritis, right knee; D50.9 Iron deficiency anemia, unspecified; F03.90 Unspecified dementia, unspecified severity, without behavioral disturbance, psychotic disturbance, mood disturbance, and anxiety; Z87.11 Personal history of peptic ulcer disease
CPT/HCPCS: 36415; 71046; 80048; 80053; 81001; 82570; 83605; 83690; 83735; 83930; 83935; 84295; 84300; 84443; 84540; 85025; 85027; 85610; 85730; 86140; 86308; 86738; 87040; 87070; 87205; 87449; 87637; 87899; 93005; 96365; 96366; 96367; 99285; A9270; G0378; J0456; J0696; J1650; J7030

== ENCOUNTER → 2023-01-01 09:09 | Outpatient (CLI) | payer MEDICARE, BC, SELFPAY ==
--- NOTE | ~2023-01-01 | MR_ITS ---
EXAMINATION: MR shoulder RT wo/w con DATE: 01/01/2023 10:26 INDICATION: Chronic pain TECHNIQUE: Magnetic resonance imaging (MRI) of the right shoulder was performed without and with 13 m L Multihance intravenous contrast. Sequences included axial PD-weighted FS FSE, axial T1-weighted FS FSE, coronal oblique PD-weighted FS FSE, coronal oblique T2-weighted FS FSE, sagittal PD-weighted FS FSE, sagittal T1-weighted SE. And postcontrast axial, sagittal and coronal T1-weighted FS FSE. COMPARISON: Right shoulder radiographs dated 10/01/2022 FINDINGS: Coracoacromial arch: The acromion undersurface is flat in morphology (type I) with a small subacromial spur at the acromia l insertion of the normal coracoacromial ligament. Mild acromioclavicular osteoarthritis. Rotator cuff: Supraspinatus and mild infraspinatus tendinopathy. There is a small full-thickness tear at the conjoi ramirez portion of the supraspinatus and infraspinatus tendons which measures 4 mm AP and up to 1 cm medi al collateral along the bursal side of the tear. More medially along the bursal side of the myotendin ous junction of the posterior supraspinatus and anterior infraspinatus tendons is an additional 1.7 x 1.9 cm region of bursal sided fraying with a few tiny intrasubstance ganglion cysts. But without a c learly defined homogeneous T2 hyperintense tear defect. The teres minor tendon is normal. Mild subsca pularis tendinopathy without tear. No asymmetric rotator cuff muscle atrophy. Biceps tendon, glenoid labrum and glenohumeral cartilage: Moderate tendinopathy and longitudinal split tearing of the long head biceps tendon centered at the j unction of the intra-articular and extra articular portions of the tendon. Degeneration of the amaris superior to posterior superior glenoid labrum. Partial thickness cartilage loss with deeper chondral fissure at the anterosuperior margin of the glenoid. There are some chondral surface irregularity jesús ng the inferior glenoid with a few small foci of mild underlying subarticular edema-like signal colunga e. Fluid: Physiologic amount fluid in the glenohumeral joint. No loose osteochondral bodies. Bicipital tenosyn ovitis with enhancing synovitis and increased fluid in the long head biceps tendon sheath. Small amou nt of fluid and additional enhancing synovitis in the subacromial/subdeltoid bursa consistent with mi ld bursitis. Bones/other: Normal marrow signal with no edema, fracture or abnormal marrow replacing process. No pathologically enlarged axillary lymphadenopathy or other abnormally enhancing lesions identified. IMPRESSION: 1. Moderate supraspinatus and infraspinatus tendinopathy with small full-thickness tear at the conjoi ramirez portion of the tendon. 2. Bicipital tenosynovitis with moderate tendinopathy and longitudinal split tearing of the long head biceps tendon. 3. Mild glenohumeral osteoarthritis with degeneration of the anterosuperior to posterior superior gle noid labrum. 4. Mild subacromial/subdeltoid bursitis. Reviewed, dictated and finalized at location A. IMPRESSION: 1. Moderate supraspinatus and infraspinatus tendinopathy with small full-thickn ess tear at the conjoined portion of the tendon. 2. Bicipital tenosynovitis with moderate tendinopathy and longitudinal split te aring of the long head biceps tendon. 3. Mild glenohumeral osteoarthritis with degeneration of the anterosuperior to posterior superior glenoid labrum. 4. Mild subacromial/subdeltoid bursitis.
== END ==
PROVIDERS: PCP Orthopaedic Surgery; Visit Provider Family Medicine
DX: M25.511 Pain in right shoulder (principal); G89.29 Other chronic pain; S46.012A Strain of muscle(s) and tendon(s) of the rotator cuff of left shoulder, initial encounter; M65.811 Other synovitis and tenosynovitis, right shoulder; M19.011 Primary osteoarthritis, right shoulder; M75.51 Bursitis of right shoulder
CPT/HCPCS: 73223; A9577

== ENCOUNTER 2023-07-09 13:02 | Outpatient (CLI) | payer MEDICARE, BC, SELFPAY | END 2023-07-09 13:03 | disposition home or self-care (01) | LOC: ANHAUDIO 13:02 | PROVIDERS: PCP Orthopaedic Surgery; Visit Provider Student in an Organized Health Care Education/Training Program | DX: H90.3 Sensorineural hearing loss, bilateral (principal); H61.21 Impacted cerumen, right ear | CPT/HCPCS: 92557; 92567 ==

== ENCOUNTER 2023-08-11 13:30 | Outpatient (RCR) | payer MEDICARE, BC, SELFPAY ==
--- NOTE | 2023-07-09 08:30 | PTOPEVAL1 ---
Assessment and note entered by Nathalia Chapman, PT Evaluation Information Assessment Status Evaluation Diagnosis L knee osteoarthritis Onset 06/23/2023 Subjective Information Pt reports pain to B knees L = R when it occurs, states it comes and goes, sometimes the R is worse and other times L is worse). States she has a fairly active lifestyle, playing golf, travelling. Received Cortisone shots every 6 months or the gel injections (hyaluronic acid) and the most recent one was last 01/2023. Wants to avoid TKR and wants to participate in therapy to continue doing active lifestyle with less discomfort. Reported Pain Level Pain Score 7,7: Self Report Assessment PT Clinical Summary Patient presents to therapy with increased pain to B knees L = R, weakness, gait impairments which limit her performing IADLs and recreational activities, difficulty with sit -> stand transitions and decreased ambulation endurance due to pain. Skilled PT necessary to manage pain, improve strength and preserve joint function to improve QOL. Plan of Care Interventions Electrical Stimulation,Hot Pack/Cold Pack,Manual Therapy,Patient/Caregiver Education,Therapeutic Activities,Therapeutic Exercise,Ultrasound PT Services Indicated Yes These treatments will address the objective and functional deficits as defined above. The patient will be advanced safely and appropriately in order for the patient to progress towards his/her prior level of function. Additional exercises will be introduced and as well as a comprehensive home exercise program upon discharge, if needed, ?to ensure carryover of functional gains achieved in the clinic. This treatment plan has been reviewed and agreement upon by the patient.
--- NOTE | 2023-08-11 14:22 | PTOPDC ---
Assessment and note entered by Teresa Araujo, PT Discharge Report Assessment Status Discharge Diagnosis L knee osteoarthritis Onset 06/23/2023 Subjective Information is doing better, the exercises help; Reported Pain Level Pain Score Self Report Pain Score Self Report Additional Pain Score Comments pain range in the past few days: R knee 0-9/10; L knee 0-6/10 decrease pain: sit, rest, over the counter meds, CBD oil, voltaren Assessment PT Clinical Summary Kate has received 11 PT sessions. Compared to the initial evaluation: pain rating is the same; strength is increased in hips and knees; education completed for HEP. The goals were partially met; Discharge PT services, and is to continue with her HEP. Plan of Care PT Services Indicated No
== END 2023-08-11 15:52 | disposition home or self-care (01) ==
LOC: ANHPT 13:30
PROVIDERS: PCP Orthopaedic Surgery; Visit Provider Family Medicine
DX: M17.0 Bilateral primary osteoarthritis of knee (principal)
CPT/HCPCS: 97110; 97116; 97140; 97161; 97530

== ENCOUNTER 2023-08-26 05:41 | Emergency (ER) | payer MEDICARE, BC, SELFPAY ==
[2023-08-26 05:48] VITALS: BP 129/62; PULSE 60; RESP 17; TEMP 37; O2SAT 97
[2023-08-26 06:16] VITALS: BP 129/62; PULSE 60; RESP 17; TEMP 37; O2SAT 97
[2023-08-26 06:34] LABS: Strep Group A RT-PCR NOT DETECTED (Negative)
[2023-08-26 06:45] LABS: Influenza A QL RT-PCR Negative (Negative); Influenza B QL RT-PCR Negative (Negative); RSV RNA, RT-PCR Negative (Negative); SARS-CoV-2 RNA PCR Positive (Negative)
--- NOTE | 2023-08-26 07:08 | ED.GENADULT ---
HPI - General Adult General Chief complaint: Unspecified Stated complaint: sore throat Time Seen by Provider: 08/26/23 06:58 History of Present Illness HPI narrative: 83-year-old female presenting to the emergency department for evaluation of sore throat. Patient was traveling to [place] and people on the trip or positive. Patient states he developed symptoms approximately 3-5 days ago. Patient does complain of sore throat. Patient denies any chest pain or shortness of breath. Patient is vaccinated Related Data Home Medications Medication Instructions Recorded Confirmed azilsartan medoxomil 40 mg tablet 40 mg PO DAILY 06/24/21 06/23/23 (Edarbi) inclisiran 284 mg/1.5 mL 284 mg subcut [id number] 07/14/22 06/23/23 subcutaneous syringe (Leqvio) amlodipine 5 mg tablet (Norvasc) 5 mg PO BID 10/01/22 06/23/23 fluticasone propionate 50 1 spray intranasal BID PRN Allergy 12/13/22 06/23/23 mcg/actuation nasal Symptoms spray,suspension (Flonase Allergy Relief) dicyclomine 10 mg capsule 10 mg PO BID PRN abdominal pain 06/23/23 06/23/23 nebivolol 5 mg tablet 2.5 mg PO DAILY 06/23/23 06/23/23 Allergies Allergy/AdvReac Type Severity Reaction Status Date / Time albuterol AdvReac Unknown Nervousness Verified 12/31/22 09:57 codeine AdvReac Unknown NAUSEA/VOMI Verified 12/31/22 09:57 TING epinephrine AdvReac Unknown Nervousness Verified 12/31/22 09:57 hydrocodone AdvReac Unknown GI UPSET Verified 12/31/22 09:57 Review of Systems Review of Systems: All systems reviewed & are unremarkable except as noted in HPI and below PMFSH Past Medical History Medical History (Updated 08/26/23 @ 07:11 by Matti Mares MD) Abnormal fasting glucose Glucose 95 with hemoglobin A1c 5.5 on 12/05/2021. Fasting glucose 101 on 05/05/2022. Fasting glucose 97 on 08/24/2022. Fasting glucose 92 on 09/03/2022. Anemia Hemoglobin 11.4 on 08/24/2022. 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 X-ray of the right shoulder on 10/01/2022 was unremarkable. MRI of the right shoulder on 01/01/2023 with tendinopathy and tears of the rotator cuff. Chronic reflux esophagitis Capsule endoscopy 05/21/2020 Contusion of left chest wall Dementia, unspecified, without behavioral disturbance Fatty liver fatty liver changes on ultrasound 02/15/2023. Gastritis Gastroesophageal reflux disease High cholesterol Hyponatremia Iron deficiency anemia, unspecified Hemoglobin 11.0, iron 106 with 31% saturation and ferritin 78 on 12/05/2021. Iron 90, 27.7% saturation, ferritin 124, hemoglobin 11.2 on 05/05/2022. Iron 104 with 31% saturation and ferritin 104 with hemoglobin 11.4 on 08/24/2022. Irritable bowel syndrome with diarrhea Left knee DJD Left upper lobe pneumonia Low serum sodium Sodium 127 with chloride 91 on 08/24/2022. sodium 133 with potassium 4.6 on 09/03/2022. Pain in right lower leg Peptic ulcer disease Pneumonia Poor memory Right knee DJD Serum potassium elevated Potassium slightly elevated at 5.4 on 08/24/2022. Repeated at 09/03/2022 with level normal at 4.6. Viktoriya Surgical History Surgical History History of arthroscopy of right knee Family History Family History Father Patient's father is , Onset Age: 81 Family history of cardiovascular disease Mother Family history of cardiovascular disease, Onset Age: 73 Sibling Family history of cardiovascular disease Grandparent Family history of cardiovascular disease, Onset Age: 70 Family history of malignant neoplasm, Onset Age: 63 Other Diabetes mellitus Family history of arthritis Family history of gout Hypertension Social Histor
[2023-08-26 07:41] VITALS: BP 142/80; PULSE 78; RESP 16; O2SAT 99
== END 2023-08-26 07:41 | disposition home or self-care (01) ==
PROVIDERS: Emergency Medicine; Emergency Provider Emergency Medicine; PCP Orthopaedic Surgery
DX: U07.1 COVID-19 (principal); F03.90 Unspecified dementia, unspecified severity, without behavioral disturbance, psychotic disturbance, mood disturbance, and anxiety
CPT/HCPCS: 87637; 87651; 99283

== ENCOUNTER 2023-11-23 10:00 | Outpatient (RCR) | payer MEDICARE, BC, SELFPAY | END 2023-11-23 23:59 | disposition home or self-care (01) | LOC: ANHAUDIO 10:00 | PROVIDERS: PCP Orthopaedic Surgery; Visit Provider Student in an Organized Health Care Education/Training Program | DX: Z46.1 Encounter for fitting and adjustment of hearing aid (principal) | CPT/HCPCS: 99199; V5261 ==

== ENCOUNTER 2024-11-08 10:00 | Outpatient (RCR) | payer MEDICARE, BC, SELFPAY ==
--- NOTE | 2024-10-03 10:56 | OPREHPOC ---
Outpatient Therapy Plan of Care This is a Multidisciplinary Plan of Care that may contain components documented by all disciplines (PT, OT, and ST.) PT Problem 1 PT Problem #1 Knowledge Deficit PT Goal 1 Goal / Goal Update *independent with HEP Target Visit 8 PT Problem 2 PT Problem #2 Pain PT Goal 1 Goal / Goal Update *monitor pain in knees with increased activity level Target Visit 8 PT Problem 3 PT Problem #3 Impaired Strength PT Goal 1 Goal / Goal Update increase strength of bilateral LE's to 4+/5, to improve gait and mobility skills Target Visit 8 PT Problem 4 PT Problem #4 Impaired Functional Mobility PT Goal 1 Goal / Goal Update 1* 5 reps sit/stand time of 15 seconds 2* 2 minute walking test distance of 525' single leg standing x 10 seconds, to improve balance 3* R 4* L Target Visit 8
--- NOTE | 2024-10-03 10:56 | PTOPEVAL1 ---
Assessment and note entered by Teresa Araujo, PT Evaluation Information Assessment Status Evaluation ICD-10 Condition Codes (PT) Pain in right knee M25.561,Pain in left knee M25. 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 Goal: get stronger and be ready for my trip in October; Reported Pain Level Pain Score Additional Pain Score Comments pain range in past week 0-7/10, both knees increase pain: walking 10 minutes decrease pain: sit, rest, arthritis med PRN, over the counter/tylenol occasional use of heat/ice sleeping OK Assessment PT Clinical Summary Day has the diagnosis of bilateral knee OA. She receives injections in her knees to manage the chronic knee pain, is active and does not use an assistive device. LE functional scale rating of 53% limitation in activity level. Reports walking tolerance about 10 minutes due to knee pain. Currently she is not doing any leg strengthening exercises at home. With the evaluation: decrease strength of bilateral LE's 4/5; 2 minute walking test distance of 450'; gait pattern with lateral trunk motion; 5 reps sit/stand time of 19 seconds without use of UE's; Skilled PT services are indicated to increase LE strength and mobility skills, with education for HEP and safety with mobility. Plan of Care Interventions Gait Training,Neuro Re-education,Patient/Caregiver Education,Therapeutic Activities,Therapeutic Exercise PT Services Indicated Yes Treatment Frequency and 1-2 x/wk for 8 visits Duration These treatments will address the objective and functional deficits as defined above. The patient will be advanced safely and appropriately in order for the patient to progress towards his/her prior level of function. Additional exercises will be introduced and as well as a comprehensive home exercise program upon discharge, if needed, ?to ensure carryover of functional gains achieved in the clinic. This treatment plan has been reviewed and agreement upon by the patient.
--- NOTE | 2024-10-24 14:52 | PCPTNOTE ---
Pt cancelled at her MDs request, per front office.
--- NOTE | 2024-11-08 10:46 | OPREHPOC ---
Outpatient Therapy Plan of Care This is a Multidisciplinary Plan of Care that may contain components documented by all disciplines (PT, OT, and ST.) PT Problem 1 PT Problem #1 Knowledge Deficit PT Goal 1 Goal / Goal Update *independent with HEP 11-08-24 d/c goal met Target Visit 8 Progress Met PT Problem 2 PT Problem #2 Pain PT Goal 1 Goal / Goal Update *monitor pain in knees with increased activity level 11-08-24 d/c goal met Target Visit 8 Progress Met PT Problem 3 PT Problem #3 Impaired Strength PT Goal 1 Goal / Goal Update increase strength of bilateral LE's to 4+/5, to improve gait and mobility skills 11-08-24 d/c goal met Target Visit 8 Progress Met PT Problem 4 PT Problem #4 Impaired Functional Mobility PT Goal 1 Goal / Goal Update 1* 5 reps sit/stand time of 15 seconds 2* 2 minute walking test distance of 525' single leg standing x 10 seconds, to improve balance 3* R 4* L 11-08-24 d/c goals 3,4 met; improved with #1 to 18 and #2 to 475' Target Visit 8 Progress Partially Met
--- NOTE | 2024-11-08 10:46 | PTOPDC ---
Assessment and note entered by Teresa Araujo, PT Assessment Status Discharge ICD-10 Condition Codes (PT) Pain in right knee M25.561,Pain in left knee M25. 562,Difficulty Walking R26.2,Abnormalities of gait and mobility R26.9 Other ICD-10 Condition Codes ( M17.0 primary OA knee- bilateral PT) Onset April 2024 Subjective Information went on a trip over the weekend and fell at the airport, tripped over her suitcase, landing on R hip; did a lot of walking and sightseeing; walking is longer time; have been doing the exercises; Reported Pain Level Pain Score Self Report Additional Pain Score Comments pain range in past week: R knee 4-10/10 and now is 5/10; pain range in past week of L knee: 0-3/10 and now is 0/10; fell at the airport over the weekend, tripped on her suit case and landed on her R hip; after falling and had to go up the stairs at hotel , pain 10/10 in R knee; decrease pain: tylenol, knee compression brace, muscle cream; increase pain: stairs, walking Assessment PT Clinical Summary Day has received 7 PT sessions. Compared to the initial evaluation: pain: had been doing better, but fell few days ago at the airport, and more pain in her R knee and hip: past week of R knee 4-10/10 and L 0-3/10; self assessment with LE functional scale rating of 65% limitation in activity level; reported walking tolerance of 20-30 minutes; increase strength of R and L LE to gross 4+/5; single leg standing on R 11 and L 16 seconds; 5 reps sit/stand time, without use of UE and wide base of support in 18 seconds; 2 minute walking test distance of 475'; education completed for HEP and techniques for pain management. The goals were partially met. Discharge PT. She is to continue with her HEP and increase walking and activity as tolerated. Plan of Care PT Services Indicated No
== END 2024-11-08 12:40 | disposition home or self-care (01) ==
LOC: ANHPT 10:00
PROVIDERS: PCP Family Medicine; Visit Provider Family Medicine
DX: M17.0 Bilateral primary osteoarthritis of knee (principal); R26.89 Other abnormalities of gait and mobility
CPT/HCPCS: 97014; 97110; 97161; 97530; G0283

== ENCOUNTER 2024-12-01 09:52 | Emergency (ER) | payer MEDICARE, BC, SELFPAY ==
[2024-12-01 10:07] VITALS: BP 158/65; PULSE 57; RESP 16; TEMP 37.3; O2SAT 95
--- NOTE | 2024-12-01 10:24 | ED_ITS ---
HPI - General Adult General Chief complaint: Abdominal Pain Stated complaint: Diarrhea/Sinus Time Seen by Provider: 12/01/24 10:25 Source: patient, RN notes reviewed and old records reviewed Mode of arrival: ambulatory Limitations: no limitations History of Present Illness HPI narrative: 84-year-old female presents to the [facility] with complaints of pain which is being evaluated by primary care provider, primary care provider had ordered an x-ray. Patient states that since she was here for the x-ray she would like to get evaluated for her diarrhea. States that started 4-5 days ago. Patient then states that started on Wednesday, 3 days ago. States that she has had multiple episodes of diarrhea every day. States that she has had 3 episodes this morning and is also complaining of right-sided abdominal pain as well as right back pain. States that she has not been able to eat or drink. States that she does have a history of IBS. Has been taking Aleve for her low back pain. Patient denies any cough, shortness of breath. Denies any fevers. Denies any rhinorrhea, sore throat or ear pain Treatments prior to arrival: other Related Data Home Medications ?Medication ?Instructions ?Recorded ?Confirmed ?Last Taken ?Type azilsartan medoxomil 40 mg tablet 40 mg PO DAILY 06/2411/15/24 12/12/22 History (Edarbi) inclisiran 284 mg/1.5 mL 284 mg subcut [id number] 07/1411/15/24 Unknown History subcutaneous syringe (Leqvio) amlodipine 5 mg tablet (Norvasc) 5 mg PO BID 10/01/22 11/15/24 12/12/22 History dicyclomine 10 mg capsule 10 mg PO BID PRN abdominal p ain 06/23/23 11/15/24 Unknown History nebivolol 5 mg tablet 2.5 mg PO DAILY 06/23/23 Unknown History ezetimibe 10 mg tablet (Zetia) 10 mg PO DAILY 08/29/24 11/15/24 Unknown History Allergies Allergy/AdvReac Type Severity Reaction Status Date / Time albuterol AdvReac Unknown Nervousness Verified 12/01/24 10:52 codeine AdvReac Unknown NAUSEA/VOMI Verified 12/01/24 10:52 TING epinephrine AdvReac Unknown Nervousness Verified 12/01/24 10:52 hydrocodone AdvReac Unknown GI UPSET Verified 12/01/24 10:52 Review of Systems Review of Systems: All systems reviewed & are unremarkable except as noted in HPI and below Constitutional: Constitutional: Reports no additional constitutional complaints ENT: Reports system reviewed and no additional complaints, except as documented Cardiovascular: Cardiovascular: Reports no additional cardiovascular complai nts, Denies chest pain and Denies dyspnea Respiratory: Respiratory: Reports no additional respiratory complaints, Denies chest congestion, Denies cough and Denies dyspnea Gastrointestinal: Gastrointestinal: Reports as per HPI Musculoskeletal: Musculoskeletal: Reports no additional musculoskeletal complaints Integumentary/Breasts: Skin/Breast: Reports system reviewed and no additional complaints, except as docu [facility] Past Medical History Medical History (Updated 12/01/24 @ 20:36 by Rosemarie Heart APRN) Chronic low back pain without sciatica Minimal cognitive impairment Peptic ulcer disease Immunity status testing immunity to MMR 06/21/2024 At low risk for fall Breast cancer screening by mammogram normal mammogram 10/12/2023. Serous otitis media of both ears with rupture of tympanic membrane COVID Irritable bowel syndrome with diarrhea Fatty liver fatty liver changes on ultrasound 02/15/2023. BMI 26.0-26.9,adult Hyponatremia Pneumonia Chronic anemia Left upper lobe pneumonia Gastroesophageal reflux disease Hearing Loss Chronic pain in right shoulder (~08/2022) anterior shoulder pain . X-ray of the right shoulder on 10/01/2022 was unremarkable. MRI of the right shoulder on 01/01/2023 with tendinopathy and tears of the rotator cuff. Low serum sodium Sodium 127 with chloride 91 on 08/24/2022. sodium 133 with potassium 4.6 on 09/03/2022. Sodium normal at 134 on 06/29/2023. Sodium normal at 136 on 01/03/2024. Serum potassium elevated Potassium slightly elevated at 5.4 on 08/24/2022. Repeated at 09/03/2022 with level normal at 4.6. potassium normal at 4.4 on 06/29/2023. Potassium normal at 4.4 on 01/03/2024. Chronic reflux esophagitis Capsule endoscopy 05/21/2020 Poor memory Abnormal fasting glucose Glucose 95 with hemoglobin A1c 5.5 on 12/05/2021. Fasting glucose 101 on 05/05/2022. Fasting glucose 97 on 08/24/2022. Fasting glucose 92 on 09/03/2022. Fasting glucose 98 with hemoglobin A1c 5.8 on 06/29/2023. glucose 95 with hemoglobin A1c 5.9 on 01/03/2024. Left knee DJD Right knee DJD Contusion of left chest wall Arthritis High cholesterol AVM (arteriovenous malformation) of small bowel, acquired with hemorrhage (~06/19/20) noted on capsule EGD 06/19/2020 Stye Pain in right lower leg Gastritis Iron deficiency anemia, unspecified Hemoglobin 11.0, iron 106 with 31% saturation and ferritin 78 on 12/05/2021. Iron 90, 27.7% saturation, ferritin 124, hemoglobin 11.2 on 05/05/2022. Iron 104 with 31% saturation and ferritin 104 with hemoglobin 11.4 on 08/24/2022. Iron 140 with 46% saturation and ferritin 91 with hemoglobin 13.2 on 06/29/2023. Iron 82 with 26% saturation and ferritin 77 on 01/03/2024. Anemia Hemoglobin 11.4 on 08/24/2022. Hemoglobin 12.3 with normal iron and vitamin B12 on 01/03/2024. Dementia, unspecified, without behavioral disturbance Surgical History Surgical History History of arthroscopy of right knee Family History Family History Father Patient's father is , Onset Age: 81 Family history of cardiovascular disease Mother Family history of cardiovascular disease, Onset Age: 73 Sibling Family history of cardiovascular disease Grandparent Family history of cardiovascular disease, Onset Age: 70 Family history of malignant neoplasm, Onset Age: 63 Other Diabetes mellitus Family history of arthritis Family history of gout Hypertension Social History Social History (Updated 11/15/24 @ 13:11 by GUICHO Muniz) Social History: Surrogate medical decision maker: Dougie Gage, grandson. Code status: Full code. Caffeine- daily Smoking status: Never smoker Second hand tobacco smoke exposure: Yes (spouse) Alcohol intake: current Drinks per week: 7 Alcohol use details: One glass of wine in the evening. Substance use: never Substance use type: does not use Current Housing: Decline to Answer Concerned About Future Housing: Decline to Answer Difficulty Paying Gas/Electric Bills: Decline to Answer Difficulty Paying for Meds: Decline to Answer Currently Unemployed: Decline to Answer Education: Decline to Answer Difficulty w/ Childcare or Family Care: Decline to Answer Living arrangements: alone Additional living arrangements comments: The patient lives in [place] but [place] in the [facility]. She raised 4 children. She enjoys traveling the world with trips just this year to [place], [place], and [place] [facility] [place]. She is active in her holiness and [employer]. 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 Gender identity (if verbalized by the patient): Female Spiritual care concerns: No Comments At the time of my signature, I reviewed and agree with the nursing past medical, surgical, social, and family history. There is no relevant family history pertinent to the patient complaint. Exam Const: General: cooperative, healthy appearing, comfortable, no acute distress, well developed, alert and well nourished Nutritional Appearance: well nourished Orientation/consciousness: patient oriented x3 Limitations: no limitations HENMT: Head: normal to inspection Ears: hearing grossly normal bilaterally and external ears normal Mouth: Yes dry mucous membranes Eyes: General: appearance normal, both eyes and all related structures Alignment and Position: alignment normal Neck: Neck: normal visual inspection, full ROM, no lymphadenopathy and no meningeal signs Chest: Chest palpation & inspection: normal inspection of the chest Resp: Effort & Inspection: normal respiratory effort and able to speak in complete sentences Auscultation: clear to auscultation bilaterally, no crackles, no rales, no rhonchi and no wheezes Cardio: Rate: regular rate GI: GI Palp: Yes abdominal tenderness (Right upper, middle, lower,) Auscultation: Hyperactive bowel sounds present : General: Yes CVA tenderness on the right Skin: General skin exam: normal color and no rashes or lesions noted Neuro: General: patient oriented x3, gait normal, moves all extremities and no meningeal signs Cognition (Neuro): normal cognition Speech: normal speech Gait exam (Neuro): Normal gait present Extrem: General: normal to inspection, full ROM, capillary refill normal and normal gait Psych: Appearance: grossly normal and well kempt Mental Status: mental status grossly normal Speech and movement: Normal speech and movement present and Clear speech present Affect: normal affect Attitude: cooperative Course Course Level of Care: Express Care Visit Vital Signs Vital signs: Vital Signs Temperature 99.2 F 12/01/24 10:07 Pulse Rate 57 L 12/01/24 10:07 Respiratory Rate 16 12/01/24 10:07 Blood Pressure 158/65 H 12/01/24 10:07 Pulse Oximetry 95 12/01/24 10:07 Oxygen Delivery Room Air 12/01/24 10:07 Temperature 99.2 F 12/01/24 10:07 Pulse Rate 57 L 12/01/24 10:07 Respiratory Rate 16 12/01/24 10:07 Blood Pressure 158/65 H 12/01/24 10:07 Pulse Oximetry 95 12/01/24 10:07 Oxygen Delivery Room Air 12/01/24 10:07 Reviewed Medical Decision Making MDM Narrative Medical decision making narrative: Due to diarrhea, abdominal pain suggested patient go to the emergency room which she is declining at this time. AMA form signed Patient states that she has family coming in at noon today. Patient with no URI it symptoms. Discussed with patient that she unlikely has flu or COVID. She can have an abdominal issue. With like her for evaluation to the ER which she declined. Differential Diagnosis Differential Diagnosis: Electrolyte disturbance, colitis, bowel blockage, C diff, kidney issues, liver issues Medical Records Medical records reviewed: Yes I reviewed the external patient's medical records. Vital Signs Vital Signs: Vital Signs Temperature 99.2 F 12/01/24 10:07 Pulse Rate 57 L 12/01/24 10:07 Respiratory Rate 16 12/01/24 10:07 Blood Pressure 158/65 H 12/01/24 10:07 Pulse Oximetry 95 12/01/24 10:07 Oxygen Delivery Room Air 12/01/24 10:07 Temperature 99.2 F 12/01/24 10:07 Pulse Rate 57 L 12/01/24 10:07 Respiratory Rate 16 12/01/24 10:07 Blood Pressure 158/65 H 12/01/24 10:07 Pulse Oximetry 95 12/01/24 10:07 Oxygen Delivery Room Air 12/01/24 10:07 Reviewed Lab Data Lab results reviewed: Yes I reviewed the patient's lab results. Labs: Reviewed Critical Care Time Critical Care Time Critical Care Time: No Discharge Plan Discharge Clinical Impression: Abdominal pain Qualifiers: Abdominal location: multiple sites Qualified Code(s): R10.85 - Abdominal pain of multiple sites Diarrhea Qualifiers: Diarrhea type: unspecified type Qualified Code(s): R19.7 - Diarrhea, unspecified Patient Disposition: Left Against Medical Advice Condition: Stable Patient Language: Taiwanese Prescriptions: No Action Edarbi 40 mg tablet 40 mg PO DAILY Leqvio 284 mg/1.5 mL syringe 284 mg subcut [id number] amlodipine [Norvasc] 5 mg tablet 5 mg PO BID Patient Comments: Prescribed by blender/braze applicator meloxicam 15 mg tablet 15 mg PO DAILY PRN (Reason: pain) Qty: 90 3RF nebivolol 5 mg tablet 2.5 mg PO DAILY dicyclomine 10 mg capsule 10 mg PO BID PRN (Reason: abdominal pain) Patient Comments: prescribed by GI donepezil [Aricept] 5 mg tablet 5 mg PO DAILY Qty: 90 4RF ezetimibe [Zetia] 10 mg tablet 10 mg PO DAILY Patient Comments: started by blender/braze applicator, in July,. azelastine 137 mcg (0.1 %) spray,non-aerosol 137 mcg NASAL Q12H PRN (Reason: Allergy Symptoms) Qty: 90 3RF Rx Instructions: administer into each nostril fluticasone propionate [Flonase Allergy Relief] 50 mcg/actuation spray,suspension 1 spray intranasal BID PRN (Reason: Allergy Symptoms) Qty: 16 11RF Rx Instructions: administer into each nostril furosemide 20 mg tablet 20 mg PO DAILY Qty: 90 3RF pantoprazole [Protonix] 40 mg tablet,delayed release (DR/EC) 40 mg PO .COMPLEX Qty: 90 3RF Rx Instructions: 40 mg orally once daily 1/2 hour before 1 meal; tramadol 50 mg tablet 50 mg PO Q6H PRN (Reason: pain) Qty: 40 0RF Follow-up/Referrals: Rafael Roman MD [Primary Care Provider, Family Practice] - 3 Days Clinical Impression: Diarrhea; Abdominal pain
== END 2024-12-01 10:48 | disposition left against medical advice (07) ==
PROVIDERS: Emergency Provider Nurse Practitioner; PCP Family Medicine
DX: R10.85 Abdominal pain of multiple sites (principal); R19.7 Diarrhea, unspecified; K21.9 Gastro-esophageal reflux disease without esophagitis; M17.0 Bilateral primary osteoarthritis of knee; F03.90 Unspecified dementia, unspecified severity, without behavioral disturbance, psychotic disturbance, mood disturbance, and anxiety
CPT/HCPCS: 99211; G0463

== ENCOUNTER → 2024-12-01 10:54 | Outpatient (CLI) | payer MEDICARE, BC, SELFPAY ==
--- NOTE | ~2024-12-01 | XR_ITS ---
XR lumbar spine min 4V Indication: M54.50 - Low back pain, unspecified Comparison: None Findings: Moderate loss of vertebral height throughout. Mild levoconvex scoliosis. No acute fracture or subluxation. Severe loss of disc height throughout. Soft tissues unremarkable Impression: No acute abnormality. Reviewed, dictated and finalized at location P. Impression: No acute abnormality.
== END ==
LOC: EXPCRAD 10:55
PROVIDERS: PCP Family Medicine; Visit Provider Family Medicine
DX: M54.50 Low back pain, unspecified (principal); G89.29 Other chronic pain
CPT/HCPCS: 72110

== ENCOUNTER → 2024-12-12 11:11 | Outpatient (CLI) | payer MEDICARE, BC, SELFPAY ==
--- NOTE | ~2024-12-12 | XR_ITS ---
EXAMINATION: XR chest 2V, 12/12/2024 11:15 CDT HISTORY: R53.82 - Chronic fatigue, unspecified COMPARISON: No comparisons available. Technique: 2 views obtained. Findings: The lungs are clear, no effusion. No pneumothorax. Heart is normal size. Mediastinal and hilar contours are within normal limits. Bony thorax no acute abnormality. Impression: No acute cardiopulmonary abnormality. Reviewed, dictated and finalized at location P. Impression: No acute cardiopulmonary abnormality.
--- OUTSIDE RECORDS SUMMARY | 2024-12-12 13:13 | XMS_ITS | Encounter Summary ---
Author Organization [facility] Address [address] [place] [address] Care Team Providers Care Professor Of Physics Name Role Phone Rafael Roman MD Primary Care Provider [phone] Encounter Details Date Type Department Care Team (Latest Contact Info) Description 03/05/2000 Outpatient Historical [facility] Leannavinicio Yvette Special screening for osteoporosis (Primary Dx) Social History Tobacco Use Types Packs/Day Years Used Date Smoking Tobacco: Never Assessed Comments Unknown Sex and Gender Information Value Date Recorded Sex Assigned at Not on file Legal Sex Female 3:54 AM AUTO DAMAGE INSURANCE APPRAISER Gender Identity Not on file Sexual Orientation Not on file documented as of this encounter Plan of Treatment Not on file documented as of this encounter Visit Diagnoses Diagnosis Special screening for osteoporosis- Primary documented in this encounter Care Teams Professor Of Physics Relationship Specialty Start Date End Date Rafael Roman MD [address] [place] [address] PCP - General Family Practice 02/15/12 documented as of this encounter
--- OUTSIDE RECORDS SUMMARY | 2024-12-12 13:13 | XMS_ITS | Encounter Summary ---
Author Organization [facility] Address [address] [place] [address] Care Team Providers Care Dairy Associate Name Role Phone Rafael Roman MD Primary Care Provider [phone] Encounter Details Date Type Department Care Team (Late st Contact Info) Description 01/04/1998 Outpatient Historical [facility] Eleazar Oliveira, [facility] Social History Tobacco Use Types Packs/Day Years Used Date Smoking Tobacco: Never Assessed Comments Unknown Sex and Gender Information Value Date Recorded Sex Assigned at Not on file Legal Sex Female 3:54 AM AUTH SPECIALIST Gender Identity Not on file Sexual Orientation Not on file documented as of this encounter Plan of Treatment Not on file documented as of this encounter Visit Diagnoses Not on filedocumented in this encounter Care Teams Dairy Associate Relationship Specialty Start Date End Date Rafael Roman MD [address] [place] [phone] PCP - General Family Practice 02/15/12 documented as of this encounter
--- OUTSIDE RECORDS SUMMARY | 2024-12-12 13:13 | XMS_ITS | Encounter Summary ---
Author Organization [facility] Address [address] [place] [address] Care Team Providers Care Demand Planning Analyst Name Role Phone Rafael Roman MD Primary Care Provider [phone] Encounter Details Date Type Department Care Team (Late Contact Info) Description 06/29/2024 Lab Requisition [facility] [address] [facility] [place] [phone] Susan Olson MD [address] [facility] [address] [place] [address] Social History Tobacco Use Types Packs/Day Years Used Date Smoking Tobacco: Never Smokeless Tobacco: Never Alcohol Use Standard Drinks/Week Comments Yes 2 (1 standard drink = 0.6 oz pur e alcohol) PHQ-2 Answer Date Recorded Patient Health Questionnaire-2 Score 0 12/28/2023 Comments Unknown Sex and Gender Information Value Date Recorded Sex Assigned at Not on file Legal Sex Female 5:54 PM HEALTH COMMUNICATIONS SPECIALIST Gender Identity Not on file Sexual Orientation Not on file documented as of this encounter Plan of Treatment Upcoming Encounters Date Type Department Care Team (Late Contact Info) Description 02/19/2025 2:00 PM HEALTH COMMUNICATIONS SPECIALIST Office Visit [facility] [address] [place] [phone] [place] [id number] [place] [phone] documented as of this encounter Procedures Procedure Name Priority Date/Time Associated Diagnosis Comments DERMATOPATHOLOGY Routine 06/29/2024 11:1 5 AM CDT documented in this encounter Results * DERMATOPATHOLOGY (06/29/2024 11:15 AM CDT) Case Report Dermatopathology Report Case: [id number] Authorizing Provider: Susan Olson MD Collected: 06/29/2024 11:15 AM Ordering Location: [facility] - Received: 07/03/2024 06:13 AM DermPath Lab Pathologist: Anayeli Cotto MD Specimen: Skin, crown 3:48 PM CDT DERMATOPATHOLOGY LABORATORY Final Diagnosis Specimen A. 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 The specimen consists of a shave biopsy measuring 6x5x3 mm. Jar 0. 3:48 PM CDT DERMATOPATHOLOGY LABORATORY Microscopic Description Specimen A. SKIN, crown: The epidermis shows parakeratosis, full thickness disorderly maturation of keratinocytes, mitoses at different levels, and dyskeratotic cells. There is a column of marked compact hyperkeratosis. 3:48 PM CDT DERMATOPATHOLOGY LABORATORY Disclaimer An external and internal positive and negative controls are appropriate for the histochemical, immunohistochemical and immunofluorescence stain(s) in this case (if any), except where stated explicitly. The performance characteristics of the stain(s) cited in this report were developed and its performance characteristic determined by the Dermatopathology Laboratory at [facility], directed by Dr. Denise Cotto. These tests need not be, and therefore are not, approved by the [place] Food and Drug Administration. The tests are used for clinical purposes. Billing Codes Specimen Charges Stain Charges 52705 1 3:48 PM CDT DERMATOPATHOLOGY LABORATORY Embedded Images 3:48 PM CDT DERMATOPATHOLOGY LABORATORY Pathology/Cytolo gy TISSUE SPECIMEN FROM SKIN / Unknown 06/29/2024 11:15 AM CDT 07/03/2024 6:13 AM CDT us Susan Olson MD LAB - PATHOLOGY/CYTOLOGY ORD ERABLES Final Result DERMATOPATHOLOGY LABORATORY [facility] - Department of Dermatology [address], [address] [phone] documented in this encounter Visit Diagnoses Not on filedocumented in this encounter Care Teams Demand Planning Analyst Relationship Specialty Start Date End Date Rafael Roman MD [address] [place] [address] [place] [phone] PCP - General Family Medicine 07/31/22 documented as of this encounter
--- OUTSIDE RECORDS SUMMARY | 2024-12-12 13:13 | XMS_ITS | Encounter Summary ---
Author Organization [facility] Address [address] [place] [address] Care Team Providers Care Stack Supervisor Name Role Phone Rafael Roman MD Primary Care Provider [phone] Encounter Details Date Type Department Care Team (Late Contact Info) Description 11/09/2019 Lab Requisition [facility] [address] [facility], [facility] [place] [phone] Traci Coles MD [address] [place] [address] Social History Tobacco Use Types Packs/Day Years Used Date Smoking Tobacco: Never Assessed Comments Unknown Sex and Gender Information Value Date Recorded Sex Assigned at Not on file Legal Sex Female 5:54 PM FIELD APPRAISER Gender Identity Not on file Sexual Orientation Not on file documented as of this encounter Plan of Treatment Upcoming Encounters Date Type Department Care Team (Late Contact Info) Description 02/19/2025 2:00 PM FIELD APPRAISER Office Visit [facility] Orthopedics [address] [place] [phone] Hilario Hairston MD [address] [place] [address] documented as of this encounter Procedures Procedure Name Priority Date/Time Associated Diagnosis Comments DERMATOPATHOLOGY Routine 11/08/2019 12:0 0 AM CDT documented in this encounter Results * DERMATOPATHOLOGY (11/08/2019 12:00 AM CDT) Case Report Dermatopathology Report Case: [id number] Authorizing Provider: Traci Coles MD Collected: 11/08/2019 12:00 AM Ordering Location: [facility] Received: 11/09/2019 07:18 AM Pathologist: Bernice Benjamin MD Specimen: Skin, left forearm 0 2:16 PM CDT DERMATOPATHOLOGY LABORATORY Final Diagnosis Specimen A. SKIN, left forearm: SQUAMOUS CELL CARCINOMA IN SITU, PRESENT AT THE BASE OF THE SPECIMEN (D04.62) (see microscopic description and comment) 0 2:16 PM CDT DERMATOPATHOLOGY LABORATORY at 1416 CDT Clinical History R/O SCC, AK, irritated. 0 2:16 PM CDT DERMATOPATHOLOGY LABORATORY Gross Description Specimen A: Received is one formalin filled container labeled with the patient's name and designated left forearm. The specimen consists of a shave measuring [id number]. Jar 0. 0 2:16 PM CDT DERMATOPATHOLOGY LABORATORY Microscopic Description Specimen A. SKIN, left forearm: The epidermis shows parakeratosis, full thickness disorderly maturation of keratinocytes, mitoses at different levels, and dyskeratotic cells. The lesion extends to the base of the biopsy. COMMENT: An invasive squamous cell carcinoma cannot be ruled out. 0 2:16 PM CDT DERMATOPATHOLOGY LABORATORY Disclaimer An external and internal positive and negative controls are appropriate for the histochemical, immunohistochemical and immunofluorescence stain(s) in this case (if any), except where stated explicitly. The performance characteristics of the stain(s) cited in this report were developed and its performance characteristic determined by the Dermatopathology Laboratory at [facility], directed by Dr. Denise Cotto. These tests need not be, and therefore are not, approved by the [place] Food and Drug Administration. The tests are used for clinical purposes. Billing Codes Specimen Charges Stain Charges 21606 1 0 2:16 PM CDT DERMATOPATHOLOGY LABORATORY Embedded Images 0 2:16 PM CDT DERMATOPATHOLOGY LABORATORY Pathology/Cytolog y TISSUE SPECIMEN FROM SKIN / Unknown 11/08/2019 11/09/2019 7:18 AM CDT Traci Coles MD LAB - PATHOLOGY/CYTOLOGY OR DERABLES Final Result DERMATOPATHOLOGY LABORATORY [facility] - Department of Dermatology [facility] Specialized Medicine [address] [place] [address], [address] [phone] documented in this encounter Visit Diagnoses Not on filedocumented in this encounter Care Teams Stack Supervisor Relationship Specialty Start Date End Date Rafael Roman MD [address] [place] [address] PCP - General Family Medicine 07/31/22 documented as of this encounter
--- OUTSIDE RECORDS SUMMARY | 2024-12-12 13:13 | XMS_ITS | Encounter Summary ---
Author Organization Clerk Address [address] [place] [address] Care Team Providers Care Process Cheese Cooker Name Role Phone Rafael Roman MD Primary Care Provider [phone] Encounter Details Date Type Department Care Team (Late st Contact Info) Description 01/04/1998 Outpatient Historical [facility] Eleazar Oliveira, [facility] Social History Tobacco Use Types Packs/Day Years Used Date Smoking Tobacco: Never Assessed Comments Unknown Sex and Gender Information Value Date Recorded Sex Assigned at Not on file Legal Sex Female 3:54 AM STRATEGY MANAGER Gender Identity Not on file Sexual Orientation Not on file documented as of this encounter Plan of Treatment Not on file documented as of this encounter Visit Diagnoses Not on filedocumented in this encounter Care Teams Process Cheese Cooker Relationship Specialty Start Date End Date Rafael Roman MD [address] [place] [phone] PCP - General Family Practice 02/15/12 documented as of this encounter
--- OUTSIDE RECORDS SUMMARY | 2024-12-12 13:13 | XMS_ITS | Encounter Summary ---
Author Organization [facility] Address [address] [place] [address] Care Team Providers Care Airplane Pilot Commercial Name Role Phone Rafael Roman MD Primary Care Provider [phone] Encounter Details Date Type Department Care Team (Late Contact Info) Description 11/04/2017 Lab Requisition [facility] [address] [facility], [facility] [place] [phone] Traci Coles MD [address] [place] [address] Social History Tobacco Use Types Packs/Day Years Used Date Smoking Tobacco: Never Assessed Comments Unknown Sex and Gender Information Value Date Recorded Sex Assigned at Not on file Legal Sex Female 5:54 PM CHANNEL BUSINESS MANAGER Gender Identity Not on file Sexual Orientation Not on file documented as of this encounter Plan of Treatment Upcoming Encounters Date Type Department Care Team (Late Contact Info) Description 02/19/2025 2:00 PM CHANNEL BUSINESS MANAGER Office Visit [facility] Orthopedics [id number] [place] [phone] Hilario Hairston MD [address] [place] [address] documented as of this encounter Procedures Procedure Name Priority Date/Time Associated Diagnosis Comments DERMATOPATH TECHNICAL REPORT Routine 11/03/2017 12:00 AM CDT documented in this encounter Results * DERMATOPATH TECHNICAL REPORT (11/03/2017 12:00 AM CDT) Case Report Dermatopathology Report Case: [id number] Authorizing Provider: Traci Coles MD Collected: 11/03/2017 12:00 AM Pathologist: Anayeli Cotto MD Received: 11/04/2017 06:41 AM Specimen: Skin, right ala 3:33 PM CDT DERMATOPATHOLOGY LABORATORY Clinical History Solar elastosis vs other. Irritated, non-healing. 3:33 PM CDT DERMATOPATHOLOGY LABORATORY Gross Description Specimen A: Received is one formalin filled container labeled with the patient's name and designated right ala. The specimen consists of a shave biopsy measuring [id number]. Jar 0. [facility] Dermatopathology Laboratory performed the technical component only. 3:33 PM CDT DERMATOPATHOLOGY LABORATORY Embedded Images 3:33 PM CDT DERMATOPATHOLOGY LABORATORY DISCLAIMER An external and internal positive and negative controls are appropriate for the histochemical, immunohistochemical and immunofluorescence stain(s) in this case (if any), except where stated explicitly. The performance characteristics of the stain(s) cited in this report were developed and its performance characteristic determined by the Dermatopathology Laboratory at [facility]. These tests need not be, and therefore are not, approved by the [place] Food and Drug Administration. The tests are used for clinical purposes. 3:33 PM CDT DERMATOPATHOLOGY LABORATORY at 1533 CDT Pathology/Cytolog y TISSUE SPECIMEN FROM SKIN / Unknown 11/03/2017 11/04/2017 6:41 AM CDT Traci Coles MD LAB - PATHOLOGY/CYTOLOGY OR DERABLES Final Result DERMATOPATHOLOGY LABORATORY [facility] - Department of Dermatology [address] [place] [address], [address] [place] [address], [facility] [phone] documented in this encounter Visit Diagnoses Not on filedocumented in this encounter Care Teams Airplane Pilot Commercial Relationship Specialty Start Date End Date Rafael Roman MD [address] [place] [address] PCP - General Family Medicine 07/31/22 documented as of this encounter
--- OUTSIDE RECORDS SUMMARY | 2024-12-12 13:13 | XMS_ITS | Encounter Summary ---
Author Organization [facility] Address [address] [facility] [place] [address] Care Team Providers Care Lead Miner Blasting Name Role Phone Rafael Roman MD Primary Care Provider [phone] Encounter Details Date Type Department Care Team (Late Contact Info) Description 08/12/2022 Lab Requisition [facility] - [facility] Lab [address] [facility], [place] [phone] Susan Olson MD [address] [facility] 3 [place] [address] Social History Tobacco Use Types Packs/Day Years Used Date Smoking Tobacco: Never Assessed Comments Unknown Sex and Gender Information Value Date Recorded Sex Assigned at Not on file Legal Sex Female 5:54 PM RUBBER BELT SPLICER Gender Identity Not on file Sexual Orientation Not on file documented as of this encounter Plan of Treatment Upcoming Encounters Date Type Department Care Team (Late Contact Info) Description 02/19/2025 2:00 PM RUBBER BELT SPLICER Office Visit [facility] Orthopedics [address] [place] [phone] Hilario Hairston MD [address] [place] [address] documented as of this encounter Procedures Procedure Name Priority Date/Time Associated Diagnosis Comments DERMATOPATHOLOGY Routine 08/12/2022 8:42 AM CDT documented in this encounter Results * DERMATOPATHOLOGY (08/12/2022 8:42 AM CDT) Case Report Dermatopathology Report Case: [id number] Authorizing Provider: Susan Olson MD Collected: 08/12/2022 08:42 AM Ordering Location: [facility] Lab Received: 08/12/2022 12:21 PM Pathologist: Anayeli Cotto MD Specimen: Skin, right hand 3 4:19 PM T DERMATOPATHOLOGY LABORATORY Final Diagnosis Specimen A. SKIN, right hand: DERMAL SCAR RESIDUAL SQUAMOUS CELL CARCINOMA NOT IDENTIFIED (L90.5) 3 4:19 PM T DERMATOPATHOLOGY LABORATORY at 1619 CDT Clinical History SCCIS, BX PROVEN 3 4:19 PM T DERMATOPATHOLOGY LABORATORY Gross Description Specimen A: Received is one formalin filled container labeled with the patient's name and designated right hand.The specimen consists of an ellipse measuring 23x9x3 mm and is oriented with the suture/notch at the 12 o'clock position labeled on the requisition as superior. The 12 to 6 o'clock margin is inked green. The 6 o'clock to 12 o'clock margin is inked black. The 12 o'clock tip is submitted in cassette 1. The 6 o'clock tip is submitted in cassette 2. The remainder of the ellipse is serially sectioned and submitted in cassettes 3-4. Jar 0. 3 4:19 PM [facility] DERMATOPATHOLOGY LABORATORY Microscopic Description Specimen A. SKIN, right hand: There are fibroblasts and collagen bundles oriented parallel to the skin surface. There are elongated blood vessels, some of which are oriented perpendicular to the skin surface. No residual squamous cell carcinoma is identified. 3 4:19 PM [facility] DERMATOPATHOLOGY LABORATORY Disclaimer An external and internal positive and negative controls are appropriate for the histochemical, immunohistochemical and immunofluorescence stain(s) in this case (if any), except where stated explicitly. The performance characteristics of the stain(s) cited in this report were developed and its performance characteristic determined by the Dermatopathology Laboratory at [facility], directed by Dr. Denise Cotto. These tests need not be, and therefore are not, approved by the [place] Food and Drug Administration. The tests are used for clinical purposes. Billing Codes Specimen Charges Stain Charges 20048 1 3 4:19 PM CDT DERMATOPATHOLOGY LABORATORY Embedded Images 3 4:19 PM CDT DERMATOPATHOLOGY LABORATORY Pathology/Cytolo gy TISSUE SPECIMEN FROM SKIN / Unknown 08/12/2022 8:42 AM CDT 08/12/2022 12:21 PM CDT Susan Olson MD LAB - PATHOLOGY/CYTOLOGY ORD ERABLES Final Result DERMATOPATHOLOGY LABORATORY [facility] - Department of Dermatology [facility] Specialized Medicine [address] [place] [address], [address] [phone] documented in this encounter Visit Diagnoses Not on filedocumented in this encounter Care Teams Lead Miner Blasting Relationship Specialty Start Date End Date Rafael Roman MD [address] [place] [address] PCP - General Family Medicine 07/31/22 documented as of this encounter
--- OUTSIDE RECORDS SUMMARY | 2024-12-12 13:13 | XMS_ITS | Encounter Summary ---
Author Organization [facility] Address [address] [place] [address] Care Team Providers Care Advertising Display Rotator Name Role Phone Rafael Roman MD Primary Care Provider [phone] Encounter Details Date Type Department Care Team (Late Contact Info) Description 12/06/2019 Lab Requisition [facility] Lab [address] [facility], [place] [phone] Susan Olson MD [address] [facility] 3 [place] [address] Social History Tobacco Use Types Packs/Day Years Used Date Smoking Tobacco: Never Assessed Comments Unknown Sex and Gender Information Value Date Recorded Sex Assigned at Not on file Legal Sex Female 5:54 PM MANAGER BUSINESS MANAGEMENT Gender Identity Not on file Sexual Orientation Not on file documented as of this encounter Plan of Treatment Upcoming Encounters Date Type Department Care Team (Late Contact Info) Description 02/19/2025 2:00 PM MANAGER BUSINESS MANAGEMENT Office Visit [facility] Orthopedics [address] [phone] Hilario Hairston MD [address] [place] [address] documented as of this encounter Procedures Procedure Name Priority Date/Time Associated Diagnosis Comments DERMATOPATHOLOGY Routine 12/05/2019 12:0 0 AM CDT documented in this encounter Results * DERMATOPATHOLOGY (12/05/2019 12:00 AM CDT) Case Report Dermatopathology Report Case: [id number] Authorizing Provider: Susan Olson MD Collected: 12/05/2019 12:00 AM Ordering Location: [facility] Lab Received: 12/06/2019 12:55 PM Pathologist: Bernice Benjamin MD Specimen: Skin, left FA 0 3:06 PM T DERMATOPATHOLOGY LABORATORY Final Diagnosis Specimen A. 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 See prior biopsy [id number] 0 3:06 PM T DERMATOPATHOLOGY LABORATORY Gross Description Specimen A: Received is one formalin filled container labeled with the patient's name and designated left FA.The specimen consists of an ellipse measuring 51o54t9 mm and is oriented with the suture/notch at the 12 o'clock position not labeled on the requisition. The 12 to 6 o'clock margin is inked green. The 6 o'clock to 12 o'clock margin is inked black. The 12 o'clock tip is submitted in cassette 1. The 6 o'clock tip is submitted in cassette 2. The remainder of the ellipse is serially sectioned and submitted in cassettes 3-4. Jar 0. 0 3:[address] [facility] DERMATOPATHOLOGY LABORATORY Microscopic Description Specimen A. SKIN, left FA: There are fibroblasts and collagen bundles oriented parallel to the skin surface. There are elongated blood vessels, some of which are oriented perpendicular to the skin surface. No residual squamous cell carcinoma in situ is identified. 0 3:06 PM T DERMATOPATHOLOGY LABORATORY Disclaimer An external and internal positive and negative controls are appropriate for the histochemical, immunohistochemical and immunofluorescence stain(s) in this case (if any), except where stated explicitly. The performance characteristics of the stain(s) cited in this report were developed and its performance characteristic determined by the Dermatopathology Laboratory at [facility], directed by Dr. Denise Cotto. These tests need not be, and therefore are not, approved by the [place] Food and Drug Administration. The tests are used for clinical purposes. Billing Codes Specimen Charges Stain Charges 70346 1 0 3:06 PM CDT DERMATOPATHOLOGY LABORATORY Embedded Images 0 3:06 PM CDT DERMATOPATHOLOGY LABORATORY Pathology/Cytolog y TISSUE SPECIMEN FROM SKIN / Unknown 12/05/2019 12/06/2019 12:55 PM CDT Susan Olson MD LAB - PATHOLOGY/CYTOLOGY ORD ERABLES Final Result DERMATOPATHOLOGY LABORATORY [facility] - Department of Dermatology [facility] Specialized Medicine [address] [place] [address], [address] [phone] documented in this encounter Visit Diagnoses Not on filedocumented in this encounter Care Teams Advertising Display Rotator Relationship Specialty Start Date End Date Rafael Roman MD [address] [facility] [address] [place] [address] PCP - General Family Medicine 07/31/22 documented as of this encounter
--- OUTSIDE RECORDS SUMMARY | 2024-12-12 13:14 | XMS_ITS | Clinical Summary ---
Author Organization [facility] Address [address] [place] [address] Care Team Providers Care School Year Nanny Name Role Phone Rafael Roman MD Primary Care Provider [phone] Source Comments [facility],non-owned Affiliates and Associated Physician Practices is amultiple site organization consisting of ambulatory clinics and hospital sitesin [place], [place], [place] and [place]. This disclosure is being madepursuant to the Care Everywhere program and may not contain all information available regarding this patient. Last updated 17.[facility] Allergies Active Allergy Reactions Criticality Noted Date Comments Acetaminophen-Codeine GI Discomfort 11/26/2022 Albuterol Nausea and/or Vomiting,Palpitations, Unknown 02/12/2012 Epinephrine Unknown,Palpitations 02/15/2012 Hydralazine Unknown 11/26/2022 Nausea/Dizzines Medications * Be aware that medications may not be up to date on this document. Alwaysverify current medications with the patient. amLODIPine (Norvasc) 5 MG tablet 1 tablet(s), Oral, daily, 90 tablet(s), 3, [id number], [id number], 160.02, cm, 12/25/2021 1340, Height, 67.4, kg, 12/25/2021 1340, Weight 2 Active inclisiran sodium (Leqvio) 284 MG/1.5ML injection 1.5 mL 3 Active Edarbi 40 MG tablet 3 Active furosemide (Lasix) 20 MG tablet Take 1 (one) tablet by mouth 2 times daily 3 Active donepezil (Aricept) 10 MG tablet Take 1 (one) tablet by mouth once daily 3 Active Nebivolol HCl (BYSTOLIC PO) Active pantoprazole EC (Protonix) 40 MG tablet Take 1 (one) tablet by mouth once daily Active Active Problems Problem Noted Date Diagnosed Date Primary osteoarthritis of right knee 12/02/2022 Encounters Date Type Department Care Team Description 11/16/2024 Lab Requisition [facility] - DermPath Lab [address], [place] [address] Susan Olson MD Neoplasm of uncertain behavior of skin 10/24/2024 12:00 PM CDT Office Visit [facility] [address] [place] [phone] Hilario Hairston MD Primary osteoarthritis of both knees (Primary Dx) from Last 3 Months Social History Tobacco Use Types Packs/Day Years Used Date Smoking Tobacco: Never Smokeless Tobacco: Never Tobacco Cessation:Counseling Given: Not Answered Alcohol Use Standard Drinks/Week Comments Yes 2 (1 standard drink = 0.6 oz pur e alcohol) PHQ-2 Answer Date Recorded Patient Health Questionnaire-2 Score 0 10/17/2024 Comments Unknown Sex and Gender Information Value Date Recorded Sex Assigned at Not on file Legal Sex Female 5:54 PM INTEGRITY ANALYST Gender Identity Not on file Sexual Orientation Not on file Last Filed Vital Signs Vital Sign Reading Time Taken Comments Blood Pressure - - Pulse - - Temperature - - Respiratory Rate - - Oxygen Saturation - - Inhaled Oxygen Concentration - - Weight 64.9 kg (143 lb) 07/27/2023 11:27 AM CDT Height 160 cm (5' 3) 11/26/2022 2:40 PM CDT Body Mass Index 25.33 11/26/2022 2:40 PM CDT Plan of Treatment Upcoming Encounters Date Type Department Care Team (Late st Contact Info) Description 02/19/2025 2:00 PM INTEGRITY ANALYST Office Visit [facility] [id number] [place] [address], [address] [place] [phone] [place] [address] [address] Health Maintenance Due Date Last Done Comments MEDICARE AWV 12 MONTHS 1940 DTAP/TDAP/TD VACCINES (1 - Tdap) 1957 PNEUMOCOCCAL VACCINE 50+ (1 of 1 - PCV) 1988 ZOSTER VACCINE (1 of 2) 1988 Respiratory Syncytial Virus (RSV) Vaccine Pt: or over 60 yrs (1 - 1-dose 75+ series) 2013 COVID-19 VACCINE (8 - 2024- season) 2024 12/04/2022, 07/05/2022, 11/05/2021, Additional history exists INFLUENZA VACCINE (#1) 2024 0, 12/18/2018, 12/08/2017, Additional history exists BONE DENSITY TESTING Completed 02/15/2012 DEPRESSION SCREENING Completed 10/24/2024, 11/27/19 HEPATITIS B VACCINE Aged Out No longe r eligible based on patient's age to complete this topic HIB VACCINE Aged Out No longer eligi ble based on patient's age to complete this topic HPV VACCINE Aged Out No longer eligi ble based on patient's age to complete this topic MENINGOCOCCAL (Group B) VACCINE SHARED DECISION-MAKING Aged Out No longer eligible based on patient's age to complete this topic MENINGOCOCCAL GROUPS A/C/Y/W VACCINE Aged Out No longer eligible based on patient's age to complete this topic Procedures Procedure Name Priority Date/Time Associated Diagnosis Comments DERMATOPATHOLOGY Routine 11/16/2024 12:0 0 PM CDT Neoplasm of uncertain behavior of skin from Last 3 Months Results * DERMATOPATHOLOGY (11/16/2024 12:00 PM CDT) Case Report Dermatopathology Report Case: [id number] Authorizing Provider: Susan Olson MD Collected: 11/16/2024 12:00 PM Ordering Location: [facility] - Received: 11/20/2024 12:32 PM DermPath Lab Pathologist: Bernice Benjamin MD Specimens: A) - Skin, center chest B) - Skin, right arm 2:39 PM CDT DERMATOPATHOLOGY LABORATORY Final Diagnosis Specimen A. 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 The specimen consists of a shave biopsy measuring 6x4x3 mm. Jar 0. Specimen B: Received is one formalin filled container labeled with the patient's name and designated right arm. The specimen consists of a shave biopsy measuring 6x5x4 mm. Jar 0. 2:39 PM T DERMATOPATHOLOGY LABORATORY Microscopic Description Specimen A. SKIN, center chest: The epidermis shows parakeratosis, full thickness disorderly maturation of keratinocytes, mitoses at different levels, and dyskeratotic cells. Specimen B. SKIN, right arm: The epidermis shows parakeratosis, full thickness disorderly maturation of keratinocytes, mitoses at different levels, and dyskeratotic cells. 2:39 PM T DERMATOPATHOLOGY LABORATORY Disclaimer An external and internal positive and negative controls are appropriate for the histochemical, immunohistochemical and immunofluorescence stain(s) in this case (if any), except where stated explicitly. The performance characteristics of the stain(s) cited in this report were developed and its performance characteristic determined by the Dermatopathology Laboratory at [facility], directed by Dr. Denise Cotto. These tests need not be, and therefore are not, approved by the [place] Food and Drug Administration. The tests are used for clinical purposes. Billing Codes Specimen Charges Stain Charges 97337 92841 1 1 2:39 PM CDT DERMATOPATHOLOGY LABORATORY Embedded Images 2:39 PM CDT DERMATOPATHOLOGY LABORATORY Pathology/Cytology TISSUE SPECIMEN FROM SKIN / Unknown 11/16/2024 12:00 PM CDT 11/20/2024 12:32 PM CDT Miscellaneous samples (specimen) TISSUE SPECIMEN FROM SKIN / Unknown 11/16/2024 12:00 PM CDT 11/20/2024 12:32 PM CDT Susan Olson MD LAB - PATHOLOGY/CYTOLOGY ORD ERABLES Final Result DERMATOPATHOLOGY LABORATORY [facility] Department of Dermatology [address], [address] [phone] from Last 3 Months Insurance MEDICARE MEDICARE FORMERLY [facility] Care Teams School Year Nanny Relationship Specialty Start Date End Date Rafael Roman MD [address] [facility] [address] [address] [address] [address] PCP - General Family Medicine 07/31/22
--- OUTSIDE RECORDS SUMMARY | 2024-12-12 13:14 | XMS_ITS | Clinical Summary ---
Author Organization [facility] Address [address] [place] [address] Care Team Providers Care Therapist Physical Name Role Phone Rafael Roman MD Primary Care Provider [phone] Allergies Active Allergy Reactions Criticality Noted Date Comments Albuterol Epinephrine Medications amLODIPine (NORVASC) 5 mg tablet TK 1 T PO QD 2 9 Active donepezil (ARICEPT) 5 mg tablet 10 mg 9 Active rosuvastatin (CRESTOR) 10 mg tablet TK 1 T PO 4 TIMES A WK 2 9 Active furosemide (LASIX) 20 mg tablet TK 2 TS PO D FOR EDEMA 0 9 Active prednisoLONE acetate (PRED FORTE) 1 % ophthalmic suspension Administer 1 drop into the left eye 4 (four) times a day 10 mL 2 9 Active Additional Information Patient not taking.Reported on 06/23/2021 hydroCHLOROthia zide (HYDRODIURIL) 25 mg tablet Take 25 mg by mouth daily 2 Active Edarbi 40 mg 2 Active nebivoloL (BYSTOLIC) 5 mg tablet Take 5 mg by mouth daily 2 Active omeprazole (PriLOSEC) 40 mg capsule 2 Active Active Problems Problem Noted Date Diagnosed Date Iritis of left eye 07/27/2018 Assessment & Plan (09/07/2018 4:35 PM CDT): H/O PE/IOL OD 11/19/16 , OS 12/03/16 s/p IOL reposition OS (Tecnis Symfony IOL OU), Hx postop iritis OS (PF taper in July [address] Zavala records). F/u recent Iritis flare up left eye (OS). Patient states that her left eye feels good. Patient tapered off of her drops every week. Patient has not used her drops for a week Patient states that her vision is fine. No evident iritis left eye (OS) today with good visual acuity (VA). RTC prn and may FU with Dr. Zavala in the future. Assessment & Plan (07/27/2018 11:34 AM CDT): Pt here for second opinion for persistent left eye discomfort, glare, haloes Hx CEIOL OU 2017 (Symfony EDOF Toric IOL OU - Dr Zavala), s/p IOL reposition OS with hx postop iritis OS Exam today with 1+ AC inflammation OS, well-centered toric EDOF IOL at intended axis of 168 degrees (per faxed records), mild PC fold likely not visually significant. DFE unremarkable, no RTs. Macula and ONH OCT WNL OU Discussed findings with patient. Plan to restart topical PF QID OS. Educated on si/sx RT/RD and to seek eye care immediately if occurs. RTC 2 weeks Pseudophakia, both eyes 07/27/2018 Assessment & Plan (06/23/2021 2:37 PM CDT): H/O PE/IOL OD 11/19/16 , OS 12/03/16 s/p IOL reposition OS (Tecnis Symfony IOL OU), Hx postop iritis OS (PF taper in July [address] Zavala records). Patient states that her left eye sees a focal spot at 12 o'clock meridian wile driving Amsler grid did not reveal any evident metamorphopsia OU No evident iritis left eye (OS) today with good visual acuity. Macular OCT did not reveal evident CME or pathology Cuticular drusen OU but no evident macular scar or heme OS To see Dr. Alexander for ? Etiology of spot in visual fieldd OS Tos see me in 6 months. Drusen (degenerative) of macula, bilateral 07/27 Social History Tobacco Use Types Packs/Day Years Used Date Smoking Tobacco: Never Smokeless Tobacco: Never Personal Safety Answer Date Recorded Getting School Help Needed Not on file 04/29 Comments Unknown Sex and Gender Information Value Date Recorded Sex Assigned at Not on file Legal Sex Female 1:53 AM COMMISSION BROKER Gender Identity Not on file Sexual Orientation Not on file Obstetrics History Last Filed Vital Signs Vital Sign Reading Time Taken Comments Blood Pressure - - Pulse - - Temperature - - Respiratory Rate - - Oxygen Saturation - - Inhaled Oxygen Concentration - - Weight 69.2 kg (152 lb 7.9 oz) 12/01/2016 9:32 A M CDT Height 161.3 cm (5' 3.5) 12/01/2016 9:32 AM CDT Body Mass Index 26.59 12/01/2016 9:32 AM CDT Plan of Treatment Health Maintenance Due Date Last Done Comments Depression Screening 1940 Fall Risk Assessment 1940 DTaP/Tdap/Td Vaccine (1 - Tdap) 1949 Hepatitis B Screening 1956 Well Visit 65+ 08/26/2003 Pneumococcal vaccine 65+ (2 of 2 - PCV) 01/07/2014 01/07/2013 Osteoporosis Screening-Bone Density Scan 02/14/2014 02/15/2012, 02/15/2012 Covid-19 Vaccine (2024-2 6 season) 2024 06/18/2021, 12/21/2020, 05/10/2020, Additional history exists Influenza Vaccine (#1) 2024 , 11/25/2019, 12/18/2018, Additional history exists Zoster Vaccine Completed 10/12/2018, 08/10/2018 Insurance MEDICARE [facility] Care Teams Therapist Physical Relationship Specialty Start Date End Date Rafael Roman MD [address] [address] PCP - General 11/18/16
--- OUTSIDE RECORDS SUMMARY | 2024-12-12 13:14 | XMS_ITS | Clinical Summary ---
Author Organization [facility] Address [address] [place] [address] Phone Care Team Providers Care Pediatric Audiologist Name Role Phone Rafael Roman MD Primary Care Provider [phone] Allergies Active Allergy Reactions Criticality Noted Date Comments Albuterol Unknown 02/12/2012 Epinephrine Unknown 02/15/2012 Medications simvastatin (ZOCOR) 40 mg Oral tablet 40 mg. Active furosemide (LASIX) 20 mg Oral tablet Active GLUCOSAMINE/ERNESTO ROBERT MONTIEL A (COSAMIN DS ORAL) Active B12/E,B6-FA,<1MG ,/MN/DIETARY 1 (VIT E2-V06-ZP12-I-PNH-UA <1MG-DIET1 ORAL) Act migdalia CALCIUM CARBONATE (CALCIUM 500 ORAL) Active FLUTICASONE PROPIONATE (FLUTICASONE INHALATION) Active aspirin (JAYASHREE) 81 mg Oral Tab Take by mouth. Active AMLODIPINE BESYLATE (AMLODIPINE ORAL) Take by mouth. Active Active Problems Problem Noted Date Diagnosed Date History of cervical dysplasia 02/15/2012 Osteopenia 02/15/2012 Family History Medical History Relation Name Comments Cancer Daughter cervical Diabetes Father Heart Disease Father Other Father chol Heart Disease Mother Other Mother chol Breast Cancer Paternal Grandmother Relation Name Status Comments Daughter Father Mother Paternal Grandmother Social History Tobacco Use Types Packs/Day Years Used Date Smoking Tobacco: Never Smokeless Tobacco: Never Alcohol Use Standard Drinks/Week Comments Yes 1.7 (1 standard drink = 0.6 oz p ure alcohol) Comments No Sex and Gender Information Value Date Recorded Sex Assigned at Not on file Legal Sex Female 3:54 AM FREIGHT ADJUSTER Gender Identity Not on file Sexual Orientation Not on file Occupation Industry Job Start Date Job End Date Not on file Not on file Not on file Not on file Last Filed Vital Signs Vital Sign Reading Time Taken Comments Blood Pressure 148/81 02/15/2012 12:13 PM FREIGHT ADJUSTER Pulse 71 02/15/2012 12:13 PM FREIGHT ADJUSTER Temperature - - Respiratory Rate - - Oxygen Saturation - - Inhaled Oxygen Concentration - - Weight 70.3 kg (155 lb) 02/15/2012 12:13 PM FREIGHT ADJUSTER Height 160.7 cm (5' 3.25) 02/15/2012 12:[address] Body Mass Index 27.24 02/15/2012 12:13 PM FREIGHT ADJUSTER Plan of Treatment Health Maintenance Due Date Last Done Comments DTAP/TDAP/TD VACCINES (1 - Tdap) 1957 PNEUMOCOCCAL VACCINE 50+ YEA RS (1 of 1 - PCV) 1988 ZOSTER VACCINE (1 of 2) 1988 RSV VACCINE (60+ or ) (1 - 1-dose 75+ series) 2013 OSTEOPOROSIS SCREENING 02/14/2014 02/15/2012, 2008 BREAST CANCER SCREENING 12/01/2014 12/02/19 14, 11/23/2012, 11/20/2011 INFLUENZA VACCINE (#1) 2024 COLORECTAL SCREENING Discontinued 07/30/2008 Colorectal Cancer Screening Discontinued FIT-DNA Q 3 years Discontinued FIT/FOBT Q 1 year Discontinued Flex Sig/CT Colonography Q 5 years Discontinued Procedures Procedure Name Priority Date/Time Associated Diagnosis Comments MAMMO SCREEN BILAT W OR WO CAD Routine 12/01/2013 XR DEXA BONE DENSITY AXIAL 1 OR MORE SITES Routine 02/15/2012 Disorder of bone and cartilage, unspecified from Last 3 Months or Most Recently Relevant to Health Maintenance Results * MAMMO DIGITAL SCREEN BILAT (12/01/2013) Anatomical Region Laterality Modality Breast Bilateral Other us Herminia Alvarez MD MAMMO ORDERABLES Edited Res ult - Final * (ABNORMAL) XR DEXA BONE DENSITY AXIAL 1 OR MORE SITES (02/15/2012) T-SCORE FEMUR (LEFT) [facility] T-SCORE FEMUR (RIGHT) [facility] T-SCORE FEMUR -1.1(A) >=-0.99 [facility] T-SCORE SPINE -0.9 >=-0.99 [facility] T-SCORE HIP (LEFT) [facility] T-SCORE HIP (RIGHT) [facility] T-SCORE HIP >=-0.99 [facility] Anatomical Region Laterality Modality Other us Herminia Alvarez MD DIAGNOSTIC IMAGING ORDERABL ES Final Result from Last 3 Months or Most Recently Relevant to Health Maintenance Insurance MEDICARE PART A AND B [facility] Care Teams Pediatric Audiologist Relationship Specialty Start Date End Date Rafael Roman MD [facility] [place] [address] PCP - General Family Practice 02/15/12
--- OUTSIDE RECORDS SUMMARY | 2024-12-12 13:14 | XMS_ITS | Encounter Summary ---
Author Organization [facility] Address [address] [place] [address] Care Team Providers Care Assembler Golf Wood Head Name Role Phone Rafael Roman MD Primary Care Provider [phone] Encounter Details Date Type Department Care Team (Late Contact Info) Description 12/17/2022 Lab Requisition [facility] - DermPath Lab [address] [place] [phone] Susan Olson MD [address] [facility] [address] [place] [address] Social History Tobacco Use Types Packs/Day Years Used Date Smoking Tobacco: Never Smokeless Tobacco: Never Alcohol Use Standard Drinks/Week Comments Yes 2 (1 standard drink = 0.6 oz pur e alcohol) PHQ-2 Answer Date Recorded Patient Health Questionnaire-2 Score 0 11/26/2022 Comments Unknown Sex and Gender Information Value Date Recorded Sex Assigned at Not on file Legal Sex Female 5:54 PM COAL AND ASH SUPERVISOR Gender Identity Not on file Sexual Orientation Not on file documented as of this encounter Plan of Treatment Upcoming Encounters Date Type Department Care Team (Late Contact Info) Description 02/19/2025 2:00 PM COAL AND ASH SUPERVISOR Office Visit [facility] Orthopedics [address] [place] [phone] [place] [address] [address] documented as of this encounter Procedures Procedure Name Priority Date/Time Associated Diagnosis Comments DERMATOPATHOLOGY Routine 12/17/2022 11:2 3 AM CDT documented in this encounter Results * DERMATOPATHOLOGY (12/17/2022 11:23 AM CDT) Case Report Dermatopathology Report Case: [id number] Authorizing Provider: Susan Olson MD Collected: 12/17/2022 11:23 AM Ordering Location: [facility] DermPath Lab Received: 12/17/2022 04:23 PM Pathologist: Mima Castillo MD Specimen: Skin, right nose 12:49 PM CDT DERMATOPATHOLOGY LABORATORY Final Diagnosis Specimen A. 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 The specimen consists of a shave biopsy measuring 5x5x1 mm. Jar 0. 12:49 PM CDT DERMATOPATHOLOGY LABORATORY Microscopic Description Specimen A. SKIN, right nose: Within the dermis there are nodular aggregates of basaloid cells associated with fibromyxoid stroma and epithelial-stromal clefts. At the advancing margin of the neoplasm, there are smaller angulated nests that infiltrate the dermis. 12:49 PM CDT DERMATOPATHOLOGY LABORATORY Disclaimer An external and internal positive and negative controls are appropriate for the histochemical, immunohistochemical and immunofluorescence stain(s) in this case (if any), except where stated explicitly. The performance characteristics of the stain(s) cited in this report were developed and its performance characteristic determined by the Dermatopathology Laboratory at [facility], directed by Dr. Denise Cotto. These tests need not be, and therefore are not, approved by the [place] Food and Drug Administration. The tests are used for clinical purposes. Billing Codes Specimen Charges Stain Charges 10550 1 12:49 PM CDT DERMATOPATHOLOGY LABORATORY Embedded Images 12:49 PM CDT DERMATOPATHOLOGY LABORATORY Pathology/Cytolo gy TISSUE SPECIMEN FROM SKIN / Unknown 12/17/2022 11:23 AM CDT 12/17/2022 4:23 PM CDT Susan Olson MD LAB - PATHOLOGY/CYTOLOGY ORD ERABLES Final Result DERMATOPATHOLOGY LABORATORY [facility] - Department of Dermatology [facility] Specialized Medicine [address] [place] [address], [address] [phone] documented in this encounter Visit Diagnoses Not on filedocumented in this encounter Care Teams Assembler Golf Wood Head Relationship Specialty Start Date End Date Rafael Roman MD [address] [place] [address] PCP - General Family Medicine 07/31/22 documented as of this encounter
--- OUTSIDE RECORDS SUMMARY | 2024-12-12 13:14 | XMS_ITS | Encounter Summary ---
Author Organization [facility] Address [address] [place] [place] [address] Care Team Providers Care [employer] Room Service Supervisor Name Role Phone Rafael Roman MD Primary Care Provider [phone] Encounter Details Date Type Department Care Team (Late Contact Info) Description 11/16/2024 Lab Requisition [facility] Derm[facility] Lab [address] [facility] [place] [id number] Susan Olson MD [address] [facility] [address] [place] [address] Neoplasm of uncertain behavior of skin Social History Tobacco Use Types Packs/Day Years Used Date Smoking Tobacco: Never Smokeless Tobacco: Never Alcohol Use Standard Drinks/Week Comments Yes 2 (1 standard drink = 0.6 oz pur e alcohol) PHQ-2 Answer Date Recorded Patient Health Questionnaire-2 Score 0 10/17/2024 Comments Unknown Sex and Gender Information Value Date Recorded Sex Assigned at Not on file Legal Sex Female 5:54 PM [employer] Gender Identity Not on file Sexual Orientation Not on file documented as of this encounter Plan of Treatment Upcoming Encounters Date Type Department Care Team (Late Contact Info) Description 02/19/2025 2:00 PM [employer] Office Visit [facility] [id number] [place] [phone] [place] [id number] [place] [phone] documented as of this encounter Procedures Procedure Name Priority Date/Time Associated Diagnosis Comments DERMATOPATHOLOGY Routine 11/16/2024 12:0 0 PM CDT Neoplasm of uncertain behavior of skin documented in this encounter Results * DERMATOPATHOLOGY (11/16/2024 12:00 PM CDT) Case Report Dermatopathology Report Case: [id number] Authorizing Provider: Susan Olson MD Collected: 11/16/2024 12:00 PM Ordering Location: [facility] - Received: 11/20/2024 12:32 PM DermPath [...] Clinical History A-B: R/O SCC 2:39 PM CDT DERMATOPATHOLOGY LABORATORY Gross Description Specimen [...] measuring 6x5x4 mm. Jar 0. 2:39 PM CDT DERMATOPATHOLOGY LABORATORY Microscopic Description Specimen A. SKIN, center chest: The epidermis shows parakeratosis, full thickness disorderly maturation of keratinocytes, mitoses at different levels, and dyskeratotic cells. Specimen B. SKIN, right arm: The epidermis shows parakeratosis, full thickness disorderly maturation of keratinocytes, mitoses at different levels, and dyskeratotic cells. 2:39 PM CDT DERMATOPATHOLOGY LABORATORY Disclaimer An external and internal positive and negative controls are appropriate for the histochemical, immunohistochemical and immunofluorescence stain(s) in this case (if any), except where stated explicitly. The performance characteristics of the stain(s) cited in this report were developed and its performance characteristic determined by the Dermatopathology Laboratory at [facility], directed by Dr. Denise Cotto. These tests need not be, and therefore are not, approved by the [place] Food and Drug Administration. The tests are used for clinical purposes. Billing Codes Specimen Charges Stain Charges 24389 76431 1 1 5 2:39 PM CDT DERMATOPATHOLOGY LABORATORY Embedded Images 2:39 PM CDT DERMATOPATHOLOGY LABORATORY Pathology/Cytology TISSUE SPECIMEN FROM SKIN / Unknown 11/16/2024 12:00 PM CDT 11/20/2024 12:32 PM CDT Miscellaneous samples (specimen) TISSUE SPECIMEN FROM SKIN / Unknown 11/16/2024 12:00 PM CDT 11/20/2024 12:32 PM CDT Susan Olson MD LAB - PATHOLOGY/CYTOLOGY ORD ERABLES Final Result DERMATOPATHOLOGY LABORATORY [facility] - Department of Dermatology [facility] Specialized Medicine [address] [place] [address], [address] [phone] documented in this encounter Visit Diagnoses Diagnosis Neoplasm of uncertain behavior of skin documented in this encounter Care Teams [employer] Room Service Supervisor Relationship Specialty Start Date End Date Rafael Roman MD [address] [facility] [address] [address] PCP - General Family Medicine 07/31/22 documented as of this encounter
== END ==
LOC: EXPTRAD 11:12
PROVIDERS: PCP Nurse Practitioner Family; Visit Provider Nurse Practitioner Family
DX: R53.82 Chronic fatigue, unspecified (principal)
CPT/HCPCS: 71046

== ENCOUNTER 2024-12-28 08:00 | Outpatient (CLI) | payer MEDICARE, BC, SELFPAY ==
--- NOTE | ~2024-12-28 | US_ITS ---
US abdomen limited Indication: R74.8 - Abnormal levels of other serum enzymes Comparison: None Technique: Alonzo-scale and color Doppler images were obtained. Findings: LIVER: Unremarkable, liver contours intact, no lesions. Normal echogenicity. . GALLBLADDER/BILIARY: Unremarkable.No cholelithiais, wall thickening or pericholecystic fluid. No biliary dilatation. CBD 7 mm. [place] sign negative. PANCREAS: Unremarkable. Right Kidney: Right kidney 8.2 x 4 x 5 cm, grossly normal Impression: No acute abnormality. Reviewed, dictated and finalized at location P. Impression: No acute abnormality.
== END 2024-12-28 08:01 | disposition home or self-care (01) ==
LOC: MICIMG 08:01
PROVIDERS: PCP Nurse Practitioner Family; Visit Provider Nurse Practitioner Family
DX: R74.8 Abnormal levels of other serum enzymes (principal)
CPT/HCPCS: 76705